=== PATIENT | male | born 1980 | race Two or more races ===

== ENCOUNTER 2020-01-15 17:36 | Outpatient (REF) | payer OTHER, SELFPAY | END 2020-01-15 17:37 | disposition home or self-care (01) | LOC: HO.LAB 17:36 | PROVIDERS: PCP Internal Medicine; Visit Provider Internal Medicine | DX: Z20.828 Contact with and (suspected) exposure to other viral communicable diseases (principal) | CPT/HCPCS: 36415; 87635 ==

== ENCOUNTER 2020-01-26 12:04 | Outpatient (REF) | payer OTHER, SELFPAY ==
--- NOTE | 2020-01-26 12:11 | XR_ITS ---
EXAMINATION: XR CHEST CLINICAL INFORMATION: Shortness of breath COMPARISON: None TECHNIQUE: 2 views of the chest were obtained. FINDINGS: No significant abnormality is noted involving the heart, lungs, mediastinum, bony thorax or soft tissues. IMPRESSION: No acute disease.
== END 2020-01-26 12:05 | disposition home or self-care (01) ==
LOC: HO.HMGCX 12:04
PROVIDERS: PCP Internal Medicine; Visit Provider Hospitalist
DX: R06.02 Shortness of breath (principal)
CPT/HCPCS: 71046

== ENCOUNTER 2020-02-02 17:03 | Outpatient (REF) | payer OTHER, SELFPAY | END 2020-02-02 17:04 | disposition home or self-care (01) | LOC: HO.LAB 17:03 | PROVIDERS: Visit Provider Nurse Practitioner Family | DX: Z20.828 Contact with and (suspected) exposure to other viral communicable diseases (principal) | CPT/HCPCS: 87635 ==

== ENCOUNTER 2021-04-22 15:14 | Outpatient (REF) | payer OTHER, SELFPAY ==
[2021-04-22 16:00] LABS: Binax Internal Control QC Valid; Binax Now Covid-19 Ag Negative (Negative)
== END 2021-04-22 15:15 | disposition home or self-care (01) ==
LOC: HO.LAB 15:14
PROVIDERS: Visit Provider Internal Medicine
DX: Z20.822 Contact with and (suspected) exposure to COVID-19 (principal)
CPT/HCPCS: C9803

== ENCOUNTER 2021-10-29 13:56 | Outpatient (REF) | payer OTHER, SELFPAY ==
[2021-10-29 14:51] LABS: Alanine Aminotransferase 24 U/L (0-40); Albumin Level 4.2 g/dL (3.5-5.0); Alkaline Phosphatase 92 U/L (39-117); Anion Gap 11 (12-20); Aspartate Amino Transferase 25 U/L (5-37); Bilirubin Total 0.5 mg/dL (0.0-1.0); Blood Urea Nitrogen 5 mg/dL (9-16); Calcium 9.3 mg/dL (8.4-10.2); Carbon Dioxide 27 mmol/L (22-29); Chloride 105 mmol/L (96-108); Estimated Glomerular Filt Rate > 60; Glucose Random 154 mg/dL (60-115); Potassium 4.3 mmol/L (3.3-5.1); Sodium 139 mmol/L (135-145); Total Protein 7.1 g/dL (6.5-8.0)
[2021-10-29 15:04] LABS: TSH reflex Free T4 1.52 uIU/mL (0.32-4.0)
== END 2021-10-29 13:57 | disposition home or self-care (01) ==
LOC: HO.LAB 13:56
PROVIDERS: PCP Internal Medicine; Visit Provider Nurse Practitioner
DX: R10.9 Unspecified abdominal pain (principal); K59.04 Chronic idiopathic constipation
CPT/HCPCS: 36415; 80053; 84443; 99202

== ENCOUNTER 2022-01-07 13:33 | Outpatient (REF) | payer OTHER, SELFPAY ==
--- NOTE | 2022-01-07 07:58 | PFT_ITS ---
FLOWS: FEV1 95% of predicted at 4.08 L. FVC 103% of predicted at 5.30 L. FEV1 to FVC ratio of 0.73. Positive bronchodilator response. LUNG VOLUMES: The patient was unable to perform lung volume maneuvers. Diffusion capacity is normal. IMPRESSION: No obstructive ventilatory defect. Positive bronchodilator response. The patient was unable to perform lung volume maneuvers. Akil Cat MD AP/MODL / [id number]
== END 2022-01-07 13:34 | disposition home or self-care (01) ==
LOC: HO.RESP 13:33
PROVIDERS: PCP Internal Medicine; Visit Provider Internal Medicine
DX: J42 Unspecified chronic bronchitis (principal)
CPT/HCPCS: 94060; 94729

== ENCOUNTER → 2022-06-02 14:06 | Outpatient (BNVA) | payer OTHER, SELFPAY | PROVIDERS: PCP Internal Medicine; Visit Provider Physician Assistant | DX: K20.0 Eosinophilic esophagitis (principal); F90.9 Attention-deficit hyperactivity disorder, unspecified type | CPT/HCPCS: 99212 ==

== ENCOUNTER 2022-06-04 10:48 | Outpatient (REF) | payer OTHER, SELFPAY ==
--- NOTE | ~2022-06-04 | US_ITS ---
EXAMINATION: US ABDOMEN COMPLETE CLINICAL INFORMATION: Epigastric pain. COMPARISON: CT of the abdomen and pelvis with contrast 01/26/2018. Ultrasound of the abdomen complete 12/02/2017 and 11/24/2013. TECHNIQUE: Real-time imaging of the abdominal viscera. FINDINGS: PANCREAS: The visualized portions of the pancreas are unremarkable but most of the gland is obscured by bowel gas. ABDOMINAL AORTA: The proximal, mid, and distal segments are normal in caliber. INFERIOR VENA CAVA: Visualized portions are normal. LIVER: The liver is enlarged and demonstrates increased echogenicity consistent with hepatic steatosis. The liver contour is normal. No focal hepatic lesion. There is no intrahepatic biliary duct dilatation seen. GALLBLADDER: Normal. The gallbladder is physiologically distended without evidence of stones, sludge, polyps, wall thickening or pericholecystic fluid. COMMON BILE DUCT: Normal in caliber measuring 0.4 cm in diameter. RIGHT KIDNEY: Normal. No hydronephrosis. No renal calculi or focal parenchymal lesions. The kidney measures 11.3 cm in maximum dimension. LEFT KIDNEY: Normal. No hydronephrosis. No renal calculi or focal parenchymal lesions. The kidney measures 11.4 cm in maximum dimension. SPLEEN: Normal. The spleen measures 10.6 cm in maximum dimension. FREE FLUID: None. US/US abdomen complete IMPRESSION: Enlarged fatty liver.
== END 2022-06-04 10:49 | disposition home or self-care (01) ==
LOC: HO.HMGCX 10:48
PROVIDERS: PCP Internal Medicine; Visit Provider Internal Medicine
DX: R10.13 Epigastric pain (principal); R14.0 Abdominal distension (gaseous)
CPT/HCPCS: 76700

== ENCOUNTER 2022-07-10 15:51 | Outpatient (REF) | payer OTHER, SELFPAY ==
[2022-07-10 17:00] LABS: MANUAL DIFF FLAG NO
[2022-07-10 17:17] LABS: Basophils Absolute Auto 0.1 X10*3/uL (0.0-0.2); Basophils Percent Auto 0.9 % (0-2); Eosinophils Absolute Auto 0.8 X10*3/uL (0.0-0.4); Eosinophils Percent Auto 9.9 % (0-4); Hematocrit 40.7 % (42.0-52.0); Hemoglobin 13.8 g/dl (14.0-18.0); Imm Gran Abs Auto 0.01 X10*3/uL (0.00-0.03); Imm Gran Pct Auto 0.1 % (0.0-0.4); Lymphocytes Absolute Auto 3.1 X10*3/uL (1.2-4.9); Mean Corpuscular HGB Conc 33.9 g/dl (31.0-36.0); Mean Corpuscular Hemoglobin 28.8 pg (27.0-33.0); Mean Platelet Volume 9.7 fL (9.4-12.4); Monocytes Absolute Auto 0.9 X10*3/uL (0.1-1.2); Monocytes Percent Auto 11.2 % (2-11); Neutrophils Percent Auto 37.9 % (45-73); Platelet Count 240 X10*3/uL (160-400); Red Blood Count 4.79 X10*6/uL (4.60-5.80); Red Cell Distribution Width 12.8 % (11.0-16.0); White Blood Count 7.9 X10*3/uL (4.8-10.8)
[2022-07-10 17:24] LABS: Estimated Average Glucose 128 mg/dL; Hemoglobin A1c % 6.1 %
[2022-07-10 17:39] LABS: Alanine Aminotransferase 22 U/L (0-40); Anion Gap 12 (12-20); Aspartate Amino Transferase 20 U/L (5-37); Blood Urea Nitrogen 9 mg/dL (9-16); Calcium 8.7 mg/dL (8.4-10.2); Carbon Dioxide 25 mmol/L (22-29); Chloride 106 mmol/L (96-108); Cholesterol 248 mg/dL; Estimated Glomerular Filt Rate > 60; Glucose Fasting 156 mg/dL (60-99); HDL Cholesterol 44 mg/dL; LDL Cholesterol Calculated 162 mg/dl; Potassium 3.7 mmol/L (3.3-5.1); Sodium 139 mmol/L (135-145); Triglycerides 213 mg/dL
[2022-07-10 18:00] LABS: Prostate Specific Antigen 0.96 ng/mL (<0.05-4.0)
== END 2022-07-10 15:52 | disposition home or self-care (01) ==
LOC: HO.LAB 15:51
PROVIDERS: PCP Internal Medicine; Visit Provider Nurse Practitioner Family
DX: Z01.818 Encounter for other preprocedural examination (principal); Z12.5 Encounter for screening for malignant neoplasm of prostate; F90.9 Attention-deficit hyperactivity disorder, unspecified type; R73.01 Impaired fasting glucose; Z21 Asymptomatic human immunodeficiency virus [HIV] infection status; E78.5 Hyperlipidemia, unspecified; N40.0 Benign prostatic hyperplasia without lower urinary tract symptoms; R39.89 Other symptoms and signs involving the genitourinary system; R39.11 Hesitancy of micturition
CPT/HCPCS: 36415; 51798; 80048; 80061; 83036; 84153; 84450; 84460; 85025; 99202

== ENCOUNTER 2022-07-20 11:19 | Outpatient (REF) | payer OTHER, SELFPAY ==
--- NOTE | ~2022-07-20 | US_ITS ---
EXAMINATION: US PELVIS LIMITED (BLADDER) CLINICAL INFORMATION: Benign prostatic hyperplasia without lower urinary tract symptoms. COMPARISON: Ultrasound abdomen complete 06/04/2022. CT abdomen and pelvis with contrast 01/26/2018. Ultrasound abdomen complete 12/02/2017. TECHNIQUE: Real-time imaging of the bladder. FINDINGS: BLADDER: Partially distended. Right ureteral jet is demonstrated; left is not. Prevoid bladder volume is 100 mL. Postvoid bladder volume is 1.7 mL. The prostate volume is 39 mL. US/US bladder IMPRESSION: The left ureteral jet was not identified of doubtful clinical significance. Otherwise unremarkable sonographic appearance of the bladder. Prostate is enlarged with a volume of 39 mL..
== END 2022-07-20 11:20 | disposition home or self-care (01) ==
LOC: HO.HMGCX 11:19
PROVIDERS: PCP Internal Medicine; Visit Provider Nurse Practitioner Family
DX: N40.0 Benign prostatic hyperplasia without lower urinary tract symptoms (principal); R39.89 Other symptoms and signs involving the genitourinary system; R39.11 Hesitancy of micturition; R30.0 Dysuria
CPT/HCPCS: 76857

== ENCOUNTER 2023-02-18 14:56 | Outpatient (AMB) | payer OTHER, SELFPAY ==
--- NOTE | 2023-02-18 14:59 | MHC.OFFVIS ---
Intake Intake Visit Reasons: follow up(set) Intake Note: Patient is present for follow up visit dysuria/incomplete bladder emptying/ultrasound/labs (imaging 07/20/22) (psa 0.96) Urology Medications: tamsulosin Blood Thinner: none PVR: 74ml's Licensing And Registration Director Required: No Accompanied by: Unknown Allergies bee pollen [BEE STINGS] Allergy (Severe, Verified 02/18/23 18:46) ANAPHYLAXIS fentanyl Allergy (Mild, Verified 02/18/23 18:46) Agitated bee stings/yellow jackets Allergy (Unknown, Uncoded 02/18/23 18:46) anaphylaxis Medication List - Last Reconciled 02/18/23 by LATASHA Jeffers atorvastatin 40 mg PO BEDTIME hfnailegy-ellrspjx-wsuyaae ala 30-120-15 mg (Biktarvy) tabs PO clindamycin HCl 300 mg PO TID Combivent Respimat 20-100 mcg/actuation (ipratropium-albuterol) 2 puffs PO Q6H PRN NS dextroamphetamine-amphetamine 50 mg ER 1 cap PO QAM epinephrine 0.3 mg (0.3 mL) IM DIRECTED PRN fluticasone propionate 220 mcg/actuation 0 mcg inhalation fluticasone propionate 110 mcg/actuation (Flovent HFA) 1 puff inhalation BID gabapentin 300 mg PO TID lidocaine 5% 1 appl topical BID PRN omeprazole 40 mg PO BID sucralfate 10 mL PO BID tadalafil (Cialis) 5 mg PO DAILY 90 days tadalafil (Cialis) 20 mg PO DAILY 90 days HPI HPI Comments History of Present Illness Details Lance is a pleasant 43-year-old male patient of Dr. Inman who was accompanied by his significant other at today's office visit. He has a past medical history of HIV with undetectable viral load, history of substance abuse, no longer using except for occasional marijuana, has asthma, hyperlipidemia, impaired fasting glucose, ADHD, and history of eosinophilic esophagitis. He presents to the office today for follow-up. Of note, patient was seen approximately 6 months ago for lower urinary tract symptoms, urinary issues, and erectile dysfunction at which time a bladder ultrasound and PSA were ordered for further assessment evaluation. The patient was also started on Flomax 0.4 mg daily. Recommendations were made for 6 week follow-up however patient discusses being unable to make it to follow-up appointments due to his schedule. Discussed at length importance of following up as recommended. He reports noting somewhat improvement in lower urinary tract symptoms of urinary frequency and bladder pressure while taking tamsulosin 0.4 mg daily. He reports feeling improvement in initiating urination while on Flomax. Bladder ultrasound results reviewed with the patient today. Partially distended bladder. Pre void bladder volume is approximately 100 mL. Postvoid bladder volume is approximately 2 mL. The prostate volume is approximately 40 mL. PSA 07/02--1.0. During last office visit recommendations were made for penile ultrasound for further assessment and evaluation however in discussion with the patient today he continues to want to think about this. 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 He reports attempting to limit monster drinks since his last office visit here. Educated, discussed, and stressed the importance of limiting energy drinks for improvement in urinary symptoms and overall health and well-being. When asked he denies incontinence, nocturia, hematuria, dysuria, and or foul smelling urine. In office urinalysis results reviewed with the patient today. PVR 74 mL. [facility] Medical History Post herpetic neuralgia Difficult or painful urination Urinary hesitancy Abdominal bloating Epigastric pain Dyslipidemia Thoracic ascending aortic aneurysm Preoperative examination Chronic idiopathic constipation Chronic bronchitis Impaired fasting glucose Asymptomatic HIV infection PTSD (post-traumatic stress disorder) ADHD (attention deficit hyperactivity disorder) Eosinophilic esophagitis Surgical History Hx of appendectomy Hx of knee surgery History of esophagogastroduodenoscopy (EGD) Family History Father No problems noted. Mother CAD (coronary artery disease) Mental health disorder Brother No problems noted. Sister No problems noted. Sister No problems noted. Son No problems noted. Daughter No problems noted. Paternal Grandfather Substance use disorder Paternal Uncle Substance use disorder Paternal Uncle Substance use disorder Social History Housing: Condominium Patient Tobacco Use Status: Former Tobacco user e-Cigarette/Vaping Use: Currently Using service: No Current occupational status: employed Cognitive needs: No Hearing needs: No Vision needs: Yes Office Procedures Post Void Residual Post Residual Void Post Void Residual (PVR): 74 [id number]-Ysva Void Residual by ultrasound Results AMB Urinalysis, Automated UA Leukoctes 70 Tawanna/uL Last Edit by Yudith Cornejo on 02/18/23 15:22 UA Nitrite Negative Last Edit by Yudith Cornejo on 02/18/23 15:22 UA Urobilinogen 0.2 mg/dL Last Edit by Yudith Cornejo on 02/18/23 15:22 UA Protein 15 mg/dL Last Edit by Bullet [employer]pamela Placesterteresa on 02/18/23 15:22 UA pH 6.0 Last Edit by CRVteresa on 02/18/23 15:22 UA Blood 0 Andry/uL Last Edit by RoyaltySharemaría Placester on 02/18/23 15:22 UA Specific [place] 1.030 Last Edit by RoyaltySharemaría Cornejo on 02/18/23 15:22 UA Ketone Negative Last Edit by Bullet [employer]pamela Cornejo on 02/18/23 15:22 UA Bilirubin 0 mg/dL Last Edit by [employer]ela Cornejo on 02/18/23 15:22 UA Glucose 0 mg/dL Last Edit by CRVteresa on 02/18/23 15:22 Results Reviewed Results Reviewed: Laboratory Last Values Urine pH (Auto) 6.0 02/18/23 15:05 Specific [place] (Auto) 1.030 02/18/23 15:05 Urine Protein (Auto) 15 mg/dL 02/18/23 15:05 Glucose (UA)(Auto) 0 mg/dL 02/18/23 15:05 Urine Ketones (Auto) Negative 02/18/23 15:05 Urine Blood (Auto) 0 Andry/uL 02/18/23 15:05 Urine Nitrite (Auto) Negative 02/18/23 15:05 Urine Bilirubin (Auto) 0 mg/dL 02/18/23 15:05 Urine Urobilinogen (Auto) 0.2 mg/dL 02/18/23 15:05 Leukocyte Esterase (Auto) 70 Tawanna/uL 02/18/23 15:05 Date of Service: 07/20/22 EXAMINATION: US PELVIS LIMITED (BLADDER) FINDINGS: BLADDER: Partially distended. Right ureteral jet is demonstrated; left is not. Prevoid bladder volume is 100 mL. Postvoid bladder volume is 1.7 mL. The prostate volume is 39 mL. IMPRESSION: The left ureteral jet was not identified of doubtful clinical significance. Otherwise unremarkable sonographic appearance of the bladder. Prostate is enlarged with a volume of 39 mL. Assessment & Plan Assessment & Plan (1) Lower urinary tract symptoms: Code(s): R39.9 - Unspecified symptoms and signs involving the genitourinary system (2) Erectile dysfunction: Code(s): N52.9 - Male erectile dysfunction, unspecified (3) Enlarged prostate: Code(s): N40.0 - Benign prostatic hyperplasia without lower urinary tract symptoms Plan In office urinalysis results reviewed with the patient today; as noted above. Discussed, educated, and stressed the importance of limiting energy drinks for improvement in urinary symptoms and overall health and well-being. Recent bladder ultrasound results reviewed with the patient today. Discussed, educated, instructed on the importance of drinking adequate amount of water daily. Discussed possible near future in office cystoscopy if symptoms persist and/or worsen for further assessment evaluation PVR 74 mL. Stop Flomax. Start Cialis 5 mg daily as discussed and prescribed. Prescription provided for p.r.n. Cialis as needed 1 hour prior to sexual activity. Discussed obtaining penile Doppler ultrasound for further assessment evaluation; patient will think about this Discussed lifestyle modifications to assist with symptoms of erectile dysfunction as well as overall health and well-being. Follow-up in 3 months with PVR; or sooner with any issues, concerns, or questions. Orders: Orders AMB Post Void Residual by ultrasound Today N40.0 - Benign prostatic hyperplasia without lower urinary tract symptoms AMB Urinalysis Automated Today Z13.9 - Encounter for screening, unspecified Medications: New tadalafil (Cialis) [id number] [facility] [id number] Member [id number] 5 mg PO DAILY 90 days 90 tabs 0RF tadalafil (Cialis) [id number] [facility] [id number] Member [id number] 20 mg PO DAILY 90 days 45 tabs 0RF Discontinued tamsulosin Discontinued Reason: Doctor's Order 0.4 mg PO BEDTIME 30 days 30 caps 1RF N40.1 - Benign prostatic hyperplasia with lower urinary tract symptoms, R35.1 - Nocturia Patient Instructions: The patient had an opportunity to ask questions regarding the treatment plan. All questions were answered. Physical exam, labs, and imaging were discussed and reviewed in detail. As well as risks, benefits, and discussion of treatment choices. No major barriers to understanding were identified. The patient expressed understanding and agreement with the above treatment plan. The patient was made aware they should contact our office by phone for worsening of their current condition, the appearance of new symptoms, or with any questions or concerns. Compliance is encouraged with any medications and follow up testing that is ordered. It is a privilege to be allowed the opportunity to participate in? your urological care.? Again, if you have any questions or concerns If you have any questions or concerns please do not hesitate to contact me. The office is [phone]. This note is constructed using voice recognition software. While every effort has been made to ensure accuracy psych rn errors may have been included. Yours sincerely, LATASHA Jeffers Coding Level of Care Code Est Pt Level 4 (67653) Diagnoses Lower urinary tract symptoms R39.9 Erectile dysfunction N52.9 Enlarged prostate N40.0 CPT Codes Post Residual Void - PVR CPT Code: 60068-Ckju Void Residual by ultrasound ([id number])
== END 2023-02-18 15:35 | disposition home or self-care (01) ==
PROVIDERS: PCP Internal Medicine; Visit Provider Nurse Practitioner Family
DX: R39.9 Unspecified symptoms and signs involving the genitourinary system (principal); N52.9 Male erectile dysfunction, unspecified; N40.0 Benign prostatic hyperplasia without lower urinary tract symptoms; Z13.9 Encounter for screening, unspecified
CPT/HCPCS: 99214

== ENCOUNTER → 2023-02-18 14:56 | Outpatient (BNVA) | payer OTHER, SELFPAY | PROVIDERS: PCP Internal Medicine; Visit Provider Nurse Practitioner Family | DX: R39.9 Unspecified symptoms and signs involving the genitourinary system (principal); N52.9 Male erectile dysfunction, unspecified; N40.0 Benign prostatic hyperplasia without lower urinary tract symptoms | CPT/HCPCS: 51798; 81003; 99212 ==

== ENCOUNTER 2023-08-27 14:44 | Outpatient (AMB) | payer OTHER, SELFPAY ==
--- NOTE | 2023-08-27 15:03 | MHC.OFFVIS ---
Intake Visit Reasons: follow up/PVR Intake Note: Patient is present for follow up visit dysuria/incomplete bladder emptying Urology Medications: tadalafil (pt needs refills) Blood Thinner: none PVR: 27ml's [employer] Open[employer]soles Required: No Accompanied by: Unknown Allergies bee pollen [BEE STINGS] Allergy (Severe, Verified 08/27/23 22:20) ANAPHYLAXIS fentanyl Allergy (Mild, Verified 08/27/23 22:20) Agitated bee stings/yellow jackets Allergy (Unknown, Uncoded 08/27/23 22:20) anaphylaxis Medication List - Last Reconciled 08/27/23 by LATASHA Jeffers atorvastatin 40 mg PO BEDTIME qyoizdfoe-ixumjybn-gifofgz ala 30-120-15 mg (Biktarvy) tabs PO clindamycin HCl 300 mg PO TID Combivent Respimat 20-100 mcg/actuation (ipratropium-albuterol) 2 puffs PO Q6H PRN NS dextroamphetamine-amphetamine 50 mg ER 1 cap PO QAM epinephrine 0.3 mg (0.3 mL) IM DIRECTED PRN fluticasone propionate 220 mcg/actuation 0 mcg inhalation fluticasone propionate 110 mcg/actuation (Flovent HFA) 1 puff inhalation BID gabapentin 300 mg PO TID lidocaine 5% 1 appl topical BID PRN omeprazole 40 mg PO BID sucralfate 10 mL PO BID tadalafil (Cialis) 20 mg PO DAILY 90 days HPI Comments Details: Lance is a pleasant 43-year-old male patient of Dr. Inman who was accompanied by his significant other at today's office visit. He has a past medical history of HIV with undetectable viral load, history of substance abuse, no longer using except for occasional marijuana, has asthma, hyperlipidemia, impaired fasting glucose, ADHD, and history of eosinophilic esophagitis. He presents to the office today for follow-up of his lower urinary tract symptoms and erectile dysfunction. In discussion with the patient today reports to be doing and feeling well. He reports feeling 20 mg as needed Cialis has been helpful in obtaining and maintaining his erections. He is requesting a refill. He currently denies any bothersome urinary issues or concerns. He denies urinary urgency, urinary frequency, incontinence, nocturia, hematuria, dysuria, foul smelling urine, changes to urinary stream, flank pain, fever, and or chills. He is happy with his current voiding parameters. Patient with a history of lower urinary tract symptoms with a previous workup of a bladder ultrasound that noted partially distended bladder. Pre void bladder volume is approximately 100 mL. Postvoid bladder volume is approximately 2 mL. The prostate volume is approximately 40 mL. PSA 07/02--1.0. 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 He reports attempting to limit monster drinks since his last office visit here and feels this has significantly improved his lower urinary tract symptoms he had been experiencing. In office urinalysis results reviewed with the patient today. PVR 27mL. [facility] Medical History Post herpetic neuralgia Difficult or painful urination Urinary hesitancy Abdominal bloating Epigastric pain Dyslipidemia Thoracic ascending aortic aneurysm Preoperative examination Chronic idiopathic constipation Chronic bronchitis Impaired fasting glucose Asymptomatic HIV infection PTSD (post-traumatic stress disorder) ADHD (attention deficit hyperactivity disorder) Eosinophilic esophagitis Surgical History Hx of appendectomy Hx of knee surgery History of esophagogastroduodenoscopy (EGD) Family History Father No problems noted. Mother CAD (coronary artery disease) Mental health disorder Brother No problems noted. Sister No problems noted. Sister No problems noted. Son No problems noted. Daughter No problems noted. Paternal Grandfather Substance use disorder Paternal Uncle Substance use disorder Paternal Uncle Substance use disorder Social History Housing: Condominium Patient Tobacco Use Status: Former Tobacco user e-Cigarette/Vaping Use: Currently Using service: No Current occupational status: employed Cognitive needs: No Hearing needs: No Vision needs: Yes Review of Systems Const Reports as per HPI Eyes Reports no additional complaints ENT Reports no additional complaints Card Details: Patient reports following up with cardiology for aortic aneurysm Resp Reports no additional complaints GI Details: Patient reports issues with constipation Reports as per HPI Musc Reports no additional complaints Neuro Reports as per HPI Psych Reports as per HPI Endo Reports as per HPI Willem/Lymph Reports as per HPI Aller/Immun Reports as per HPI Physical Exam Const General: cooperative, healthy appearing, comfortable, no acute distress, well developed, alert and awake Orientation/consciousness: patient oriented x3 Limitations: no limitations HEENT Head: Yes normal to inspection, Yes normocephalic and Yes atraumatic Ears: hearing grossly normal bilaterally Eyes General: appearance normal, both eyes and all related structures Neck Neck: Yes normal visual inspection and Yes trachea midline Chest Chest palpation & inspection: normal inspection of the chest Resp Effort & Inspection: normal respiratory effort and able to speak in complete sentences Cardio Rate: regular rate GI Inspection: Yes normal to inspection General: Yes no CVA tenderness Back/Spine/Pelvis Back: no CVA tenderness Skin General skin exam: no rashes or lesions noted Neuro General: patient oriented x3 Extrem General: Yes normal to inspection Psych Appearance: grossly normal and well kempt Mental Status: mental status grossly normal Speech and movement: Normal speech and movement present (fast speech ) and Clear speech present Affect: normal affect Attitude: cooperative Thought process: Racing thoughts present Thought content: Normal thought content present Insight: Fair insight present (Psych) Judgement: Fair judgement present (Psych) Results AMB Urinalysis, Automated UA Leukoctes 0 Tawanna/uL Last Edit by Inktd on 08/27/23 15:17 UA Nitrite Negative Last Edit by Inktd on 08/27/23 15:17 UA Urobilinogen 0.2 mg/dL Last Edit by Inktd on 08/27/23 15:17 UA Protein 0 mg/dL Last Edit by Inktd on 08/27/23 15:17 UA pH 7.0 Last Edit by Inktd on 08/27/23 15:17 UA Blood 0 Andry/uL Last Edit by Inktd on 08/27/23 15:17 UA Specific [place] 1.005 Last Edit by Inktd on 08/27/23 15:17 UA Ketone Negative Last Edit by Inktd on 08/27/23 15:17 UA Bilirubin 0 mg/dL Last Edit by Inktd on 08/27/23 15:17 UA Glucose 0 mg/dL Last Edit by Inktd on 08/27/23 15:17 Results Reviewed Results Reviewed: Laboratory Last Values Urine pH (Auto) 7.0 08/27/23 15:12 Specific [place] (Auto) 1.005 08/27/23 15:12 Urine Protein (Auto) 0 mg/dL 08/27/23 15:12 Glucose (UA)(Auto) 0 mg/dL 08/27/23 15:12 Urine Ketones (Auto) Negative 08/27/23 15:12 Urine Blood (Auto) 0 Andry/uL 08/27/23 15:12 Urine Nitrite (Auto) Negative 08/27/23 15:12 Urine Bilirubin (Auto) 0 mg/dL 08/27/23 15:12 Urine Urobilinogen (Auto) 0.2 mg/dL 08/27/23 15:12 Leukocyte Esterase (Auto) 0 Tawanna/uL 08/27/23 15:12 Assessment & Plan Assessment & Plan (1) Erectile dysfunction: Code(s): N52.9 - Male erectile dysfunction, unspecified Category: Medical (2) Lower urinary tract symptoms: Code(s): R39.9 - Unspecified symptoms and signs involving the genitourinary system Category: Medical (3) Enlarged prostate: Code(s): N40.0 - Benign prostatic hyperplasia without lower urinary tract symptoms Category: Medical Plan In office urinalysis results reviewed with the patient today; as noted above. PVR 27 mLs Continue as needed Cialis as discussed and prescribed; refill provided. Patient currently denies any bothersome urinary issues or concerns. He reports be happy with current voiding parameters. Discussed further workup of ED to include penile Doppler however patient reports be happy with p.r.n./on demand Cialis and feels this has been adequate with obtaining and maintaining his erections. Discussed lifestyle modifications to assist with symptoms of erectile dysfunction as well as overall health and well-being. Follow-up in 6 months with PVR; or sooner with any issues, concerns, or questions. Orders: Orders AMB Urinalysis Automated Today Z13.9 - Encounter for screening, unspecified Medications: Refilled tadalafil (Cialis) [id number] [facility] [id number] Member [id number] 20 mg PO DAILY 45 tabs 3RF 90 days Discontinued [facility]adalafil (Cialis) [id number] [facility] [id number] Discontinued Reason: Doctor's Order 5 mg PO DAILY 90 tabs 0RF 90 days Patient Instructions: The patient had an opportunity to ask questions regarding the treatment plan. All questions were answered. Physical exam, labs, and imaging were discussed and reviewed in detail. As well as risks, benefits, and discussion of treatment choices. No major barriers to understanding were identified. The patient expressed understanding and agreement with the above treatment plan. The patient was made aware they should contact our office by phone for worsening of their current condition, the appearance of new symptoms, or with any questions or concerns. Compliance is encouraged with any medications and follow up testing that is ordered. It is a privilege to be allowed the opportunity to participate in? your urological care.? Again, if you have any questions or concerns If you have any questions or concerns please do not hesitate to contact me. The office is [phone]. This note is constructed using voice recognition software. While every effort has been made to ensure accuracy section hand helper errors may have been included. Yours sincerely, LATASHA Jeffers Coding Level of Care Code Est Pt Level 3 (24213) Diagnoses Erectile dysfunction N52.9 Lower urinary tract symptoms R39.9 Enlarged prostate N40.0
== END 2023-08-27 16:08 | disposition home or self-care (01) ==
LOC: HO.HUSH 14:44
PROVIDERS: PCP Internal Medicine; Visit Provider Nurse Practitioner Family
DX: N52.9 Male erectile dysfunction, unspecified (principal); R39.9 Unspecified symptoms and signs involving the genitourinary system; N40.0 Benign prostatic hyperplasia without lower urinary tract symptoms; Z13.9 Encounter for screening, unspecified
CPT/HCPCS: 99213

== ENCOUNTER → 2023-08-27 14:44 | Outpatient (BNVA) | payer OTHER, SELFPAY | PROVIDERS: PCP Internal Medicine; Visit Provider Nurse Practitioner Family | DX: N52.9 Male erectile dysfunction, unspecified (principal); N40.0 Benign prostatic hyperplasia without lower urinary tract symptoms; R39.9 Unspecified symptoms and signs involving the genitourinary system | CPT/HCPCS: 81003; 99212 ==

== ENCOUNTER 2024-01-10 09:04 | Outpatient (AMB) | payer OTHER, SELFPAY ==
--- NOTE | 2024-01-10 09:45 | MHC.PC.OV ---
Vital Signs 01/10/24 09:46 Height 5 ft 11.5 in Weight 237 lb BMI 32.6 BP 140/82 H Blood Pressure Location Lt brachial Position Sitting Pulse 84 Pulse Source Pulse Oximeter Pulse Oximetry (%) 99 Oxygen Delivery Method Room Air Intake Visit Reasons: Possible Melanoma Intake Note: Pt is here today to discuss a growth on his penil and its a brownish color Allergies bee pollen [BEE STINGS] Allergy (Severe, Verified 01/11/24 23:20) ANAPHYLAXIS fentanyl Allergy (Mild, Verified 01/11/24 23:20) Agitated bee stings/yellow jackets Allergy (Unknown, Uncoded 01/11/24 23:20) anaphylaxis Medication List - Last Reconciled 01/11/24 by Tina Inman MD atorvastatin 40 mg PO BEDTIME wyphuhfhh-uxqqnpfu-nugxcgr ala 30-120-15 mg (Biktarvy) tabs PO clindamycin HCl 300 mg PO TID Combivent Respimat 20-100 mcg/actuation (ipratropium-albuterol) 2 puffs PO Q6H PRN NS dextroamphetamine-amphetamine 50 mg ER 1 cap PO QAM epinephrine 0.3 mg (0.3 mL) IM DIRECTED PRN fluticasone propionate 220 mcg/actuation 0 mcg inhalation fluticasone propionate 110 mcg/actuation (Flovent HFA) 1 puff inhalation BID gabapentin 300 mg PO TID lidocaine 5% 1 appl topical BID PRN omeprazole 40 mg PO BID sucralfate 10 mL PO BID tadalafil (Cialis) 20 mg PO DAILY 90 days Tobacco use date assessed: 01/10/24 Dental Screening Dental Screen Date: 01/10/24 Did you have a dental visit in the last 12 months?: Yes Did you have a dental problem in the last 6 months where you did not have access to dental care?: Yes Was dental information given to patient?: Patient has dentist HPI Possible Melanoma HPI Details 44-year-old lady here today wanting to have a lesion on his suprapubic area checked. Patient states that he has had a small lesion there for several years now but it has started increasing in size and changing color. Patient is known to frequent tanning salons [facility] Medical History Post herpetic neuralgia Difficult or painful urination Urinary hesitancy Abdominal bloating Epigastric pain Dyslipidemia Thoracic ascending aortic aneurysm Preoperative examination Chronic idiopathic constipation Chronic bronchitis Impaired fasting glucose Asymptomatic HIV infection PTSD (post-traumatic stress disorder) ADHD (attention deficit hyperactivity disorder) Eosinophilic esophagitis Surgical History Hx of appendectomy Hx of knee surgery History of esophagogastroduodenoscopy (EGD) Family History Father No problems noted. Mother CAD (coronary artery disease) Mental health disorder Brother No problems noted. Sister No problems noted. Sister No problems noted. Son No problems noted. Daughter No problems noted. Paternal Grandfather Substance use disorder Paternal Uncle Substance use disorder Paternal Uncle Substance use disorder Social History Housing: Condominium Patient Tobacco Use Status: Former Tobacco user e-Cigarette/Vaping Use: Currently Using service: No Current occupational status: employed Cognitive needs: No Hearing needs: No Vision needs: Yes Questionnaire PHQ-9 Over the last 2 weeks, how often have you been bothered by any of the following problems? 1. Little interest or pleasure in doing things: not at all 2. Feeling down, depressed, or hopeless: not at all 3. Trouble falling or staying asleep, or sleeping too much: more than half the days 4. Feeling tired or having little energy: several days 5. Poor appetite or overeating: several days 6. Feeling bad about yourself - or that you are a failure or have let yourself or your family down: not at all 7. Trouble concentrating on things, such as reading the newspaper or watching television: not at all 8. Moving or speaking so slowly that other people could have noticed. Or the opposite - being so fidgety or restless that you have been moving around a lot more than usual: not at all 9. Thoughts that you would be better off or of hurting yourself in some way: not at all Total score: 4 Depression Screening Interpretation: Negative Depression Screening Done: Yes 58614 - PHQ-9 Billing: Yes Source: Developed by Drs. Tanvir Madera, Lisa Cherry, Jerome Wagoner and colleagues, with an educational rey from [employer]. Thrive Questionnaire Date Thrive assessed: 01/10/24 I am a: Patient What is your living situation today?: I have a steady place to live Within the past 12 months, did the food you bought not last and you didn't have the money to get more?: Often true Within the past 12 months, did you worry whether your food would run out before you got money to buy more?: Never true Do you have trouble paying for medicines?: No Do you have trouble getting transportation to medical appointments?: No Do you have trouble paying your heating and electricity bill?: No Do you have trouble taking care of your child, family member or friend?: No Do you have trouble with day-to-day activities such as bathing, preparing meals, shopping, managing finances, etc.?: No Are you interested in more education?: No Please select the resources that you would like help with: None Currently or been in a relationship where the following occur: I choose not to answer THRIVE Score: 1 AUDIT C Alcohol Use Questionnaire (AUDIT-C) 1. How often do you have a drink containing alcohol?: Never Total Score: 0 SHIRLENE-7 AMB Questionnaire SHIRLENE-7 Date SHIRLENE - 7 assessed: 01/10/24 Feeling nervous, anxious, or on edge: 0 = Not at all Not being able to stop or control worryin = Not at all Worrying too much about different things: 0 = Not at all Trouble relaxin = Not at all Being so restless that it is hard to sit still: 0 = Not at all Becoming easily annoyed or irritable: 0 = Not at all Feeling afraid as if something awful might happen: 0 = Not at all Total SHIRLENE-7 score (0-4 normal; 5-9 mild; 10-14 moderate; 15-21 severe): 0 Source: Developed by Drs. Tanvir Madera, Lisa Cherry, Jerome Wagoner and colleagues, with an educational rey from [employer]. Review of Systems Const All systems reviewed & are unremarkable except as noted in HPI and below Physical exam (Primary Care) Vital Signs: Last Vital Signs Pulse 84 01/10/24 09:46 BP 140/82 H 01/10/24 09:46 Pulse Ox 99 01/10/24 09:46 Oxygen Delivery Method Room Air 01/10/24 09:46 BMI result Body Mass Index 32.6 Tobacco/Smoking Status: Tobacco use Status Tobacco use date assessed 01/10/24 01/10/24 09:51 Patient Tobacco Use Status Former Tobacco user 01/10/24 09:51 e-Cigarette/Vaping Use Currently Using 01/10/24 09:51 PHQ-9: PHQ-9 Score PHQ-9: Total score 6 01/10/24 10:14 Depression Screening Interpretation: Negative Thrive Assessment: Date of Thrive Assessment Date Thrive assessed 01/10/24 01/10/24 09:51 Currently or been in a relationship where the following occur: I choose not to answer Const Other: Alert oriented x3, no acute distress noted ambulatory normal gait Orientation/consciousness: patient oriented x3 Neck Neck: Yes full ROM, Yes no lymphadenopathy and Yes supple Resp Auscultation: clear to auscultation bilaterally Cardio Other: S1-S2 PRESENT REGULAR RATE AND RHYTHM Skin Other: Circular hyperpigmented macular lesion on mons pubis with irregular margin , nontender to palpation, normal surrounding skin noted Neuro General: patient oriented x3, gait normal, tone normal, Normal light touch and pain sensation, no focal motor deficits and CN's II-XI intact bilaterally Extrem General: Yes full ROM, Yes no joint enlargement, Yes no clubbing, cyanosis or edema and Yes normal gait Coding Level of Care Code Est Pt Level 3 (16234) Diagnoses Change in pigmented skin lesion L81.9
[2024-01-10 09:46] VITALS: BP 140/82; PULSE 84; O2SAT 99; BMI 32.6
== END 2024-01-10 11:05 | disposition home or self-care (01) ==
PROVIDERS: PCP Internal Medicine; Visit Provider Internal Medicine
DX: L81.9 Disorder of pigmentation, unspecified (principal)

== ENCOUNTER → 2024-01-10 09:04 | Outpatient (BNVA) | payer OTHER, SELFPAY | PROVIDERS: PCP Internal Medicine; Visit Provider Internal Medicine | DX: L81.9 Disorder of pigmentation, unspecified (principal) | CPT/HCPCS: 96127; 99212 ==

== ENCOUNTER 2024-03-27 10:21 | Outpatient (AMB) | payer OTHER, SELFPAY ==
--- OUTSIDE RECORDS SUMMARY | 2024-03-27 10:22 | XMS_ITS ---
Author Name [facility] Organization Unknown History of Medication Use Medication Directions Dispensed Refills Start Date End Date Stat No known medications No known medications 2023 active Problems Problem Status Onset Date Problem Type Date of Resoluti on Source Chemical exposure active EncounterDiagnosisAct [facility]
--- NOTE | 2024-03-27 11:08 | A.OFFPC_ITS ---
Vital Signs 03/27/24 11:09 Height 5 ft 11.5 in Weight 250 lb BMI 34.4 BP 140/80 H Blood Pressure Location Rt brachial Position Sitting Pulse 83 Pulse Source Pulse Oximeter Pulse Oximetry (%) 98 Oxygen Delivery Method Room Air Intake Visit Reasons: PE/OVERDUE Intake Note: Pt is here today for his PE: Last colonoscopy 07/2023 [place] Allergies bee pollen [BEE STINGS] Allergy (Severe, Verified 03/27/24 11:28) ANAPHYLAXIS fentanyl Allergy (Mild, Verified 03/27/24 11:28) Agitated bee stings/yellow jackets Allergy (Unknown, Uncoded 03/27/24 11:28) anaphylaxis Medication List - Last Reconciled 03/27/24 by Tina Inman MD [id number]-[id number]-[id number] ala 30-120-15 mg (Biktarvy) tabs PO Combivent Respimat 20-100 mcg/actuation (ipratropium-albuterol) 2 puffs PO Q6H PRN NS dextroamphetamine-amphetamine 50 mg ER 1 cap PO QAM epinephrine 0.3 mg (0.3 mL) IM DIRECTED PRN fluticasone propionate 110 mcg/actuation 1 puff inhalation BID omeprazole 40 mg PO BID tadalafil (Cialis) 20 mg PO DAILY 90 days Tobacco use date assessed: 03/27/24 Dental Screening Dental Screen Date: 03/27/24 Did you have a dental visit in the last 12 months?: Yes Did you have a dental problem in the last 6 months where you did not have access to dental care?: No Was dental information given to patient?: Patient has dentist HPI PE/OVERDUE HPI Details 44 year-old male with history of HIV wit h undetectable viral load, history of substance abuse, no longer using except for occasional marijuana, has asthma, hyperlipidemia, impaired fasting glucose, ADHD, history of eosinophilic esophagitis, here today for his physical exam.. He is currently followed by HIV specialist Dr. Veliz at [facility], and sees therapist Jessica Grady and Precious García, psychiatric nurse practitioner for treatment of his ADHD currently stable controlled on dextroamphetamine-amphetamine. He takes omeprazole for treatment of eosinophilic esophagitis, followed at [facility]. Has mild intermittent asthma currently only using Combivent Respimat and fluticasone propionate Takes Cialis 20 mg daily for erectile dysfunction, seen by [facility]rology [facility] Medical History (Updated 03/27/24 @ 11:53 by Tina Inman MD) Numbness and tingling Post herpetic neuralgia Difficult or painful urination Urinary hesitancy Abdominal bloating Epigastric pain Dyslipidemia Thoracic ascending aortic aneurysm Preoperative examination Chronic idiopathic constipation Chronic bronchitis Impaired fasting glucose Asymptomatic HIV infection PTSD (post-traumatic stress disorder) ADHD (attention deficit hyperactivity disorder) Eosinophilic esophagitis Surgical History Hx of appendectomy Hx of knee surgery History of esophagogastroduodenoscopy (EGD) Family History Father No problems noted. Mother CAD (coronary artery disease) Mental health disorder Brother No problems noted. Sister No problems noted. Sister No problems noted. Son No problems noted. Daughter No problems noted. Paternal Grandfather Substance use disorder Paternal Uncle Substance use disorder Paternal Uncle Substance use disorder Social History Housing: Condominium Patient Tobacco Use Status: Former Tobacco user e-Cigarette/Vaping Use: Currently Using service: No Current occupational status: employed Cognitive needs: No Hearing needs: No Vision needs: Yes Questionnaire PHQ-9 Over the last 2 weeks, how often have you been bothered by any of the following problems? Depression Screening Interpretation: Negative Depression Screening Done: Yes Source: Developed by Drs. Tanvir Madera, Lisa Cherry, Jerome Wagoner and colleagues, with an educational rey from [employer]. Thrive Questionnaire Date Thrive assessed: 01/10/24 I am a: Patient What is your living situation today?: I have a steady place to live Within the past 12 months, did the food you bought not last and you didn't have the money to get more?: Often true Within the past 12 months, did you worry whether your food would run out before you got money to buy more?: Never true Do you have trouble paying for medicines?: No Do you have trouble getting transportation to medical appointments?: No Do you have trouble paying your heating and electricity bill?: No Do you have trouble taking care of your child, family member or friend?: No Do you have trouble with day-to-day activities such as bathing, preparing meals, shopping, managing finances, etc.?: No Are you currently unemployed and looking for a job?: No Are you interested in more education?: No Please select the resources that you would like help with: None Currently or been in a relationship where the following occur: I choose not to answer THRIVE Score: 1 AUDIT C Alcohol Use Questionnaire (AUDIT-C) 3. How often do you have six or more drinks on one occasion?: Never Total Score: 0 SHIRLENE-7 AMB Questionnaire SHIRLENE-7 Date SHIRLENE - 7 assessed: 01/10/24 Source: Developed by Drs. Tanvir Madera, Lisa Cherry, Jerome Wagoner and colleagues, with an educational rey from [employer]. Review of Systems Const Reports no additional complaints Eyes Details: [facility], has myopia ENT Reports no additional complaints Card Denies chest pain, Denies irregular heart rhythm, Denies lightheadedness, Denies palpitations and Denies dyspnea on exertion Resp Denies cough and Denies dyspnea on exertion GI Reports abdominal pain (Nonspecific, intermittent typically postprandial), Reports belching, Denies hematochezia, Reports constipation, Reports dyspepsia, Reports heartburn and Reports loose stools Reports as per HPI Musc Reports no additional complaints Skin/Breast Denies rash Neuro Reports no additional complaints Psych Reports no additional complaints Endo Denies palpitations Willem/Lymph Reports no additional complaints Aller/Immun Reports no additional complaints Physical exam (Primary Care) Vital Signs: Last Vital Signs Pulse 83 03/27/24 11:09 BP 140/80 H 03/27/24 11:09 Pulse Ox 98 03/27/24 11:09 Oxygen Delivery Method Room Air 03/27/24 11:09 BMI result Body Mass Index 34.4 Tobacco/Smoking Status: Tobacco use Status Tobacco use date assessed 03/27/24 03/27/24 11:14 Patient Tobacco Use Status Former Tobacco user 03/27/24 11:14 e-Cigarette/Vaping Use Currently Using 03/27/24 11:14 Depression Screening Interpretation: Negative Thrive Assessment: Date of Thrive Assessment Date Thrive assessed 01/10/24 03/27/24 11:14 Currently or been in a relationship where the following occur: I choose not to answer Advance Care Planning discussion: Completed/Scanned Date of discussion: 03/27/24 Who was present: Patient nuclear engineer Forms completed: Health Care Proxy Time spent: 16-45 minutes Actual minutes spent: 3 Const Other: Alert oriented x3, no acute distress noted ambulatory normal gait Orientation/consciousness: patient oriented x3 HENMT Head: Yes normocephalic Ears: external ears normal, TM's normal bilaterally and EAC's normal General nose exam: Normal external nose present Face and sinus: Yes face symmetric Mouth: Normal oral and palatal mucosa present, tongue normal, oropharynx normal and moist mucous membranes Eyes General: appearance normal, both eyes and all related structures Neck Neck: Yes full ROM, Yes no lymphadenopathy and Yes supple Resp Auscultation: clear to auscultation bilaterally Cardio Other: S1-S2 PRESENT REGULAR RATE AND RHYTHM GI Palpation (GI): Soft to palpation, nontender and no guarding Auscultation: normal bowel sounds General: Yes no CVA tenderness Male General Exam: Yes normal external exam Back/Spine/Pelvis Back: no CVA tenderness and No back tenderness Skin General skin exam: no rashes or lesions noted Neuro General: patient oriented x3, gait normal, tone normal, Normal light touch and pain sensation, no focal motor deficits and CN's II-XI intact bilaterally Extrem General: Yes full ROM, Yes no joint enlargement, Yes no clubbing, cyanosis or edema and Yes normal gait Psych Appearance: grossly normal Mental Status: mental status grossly normal Speech and movement: Normal speech and movement present Affect: normal affect Coding Level of Care Code Est Pt Prev Care 40-64y(80032) Diagnoses Annual visit for general adult medical examination with abnormal findings Z00.01 Eosinophilic esophagitis K20.0 ADHD (attention deficit hyperactivity disorder) F90.9 PTSD (post-traumatic stress disorder) F43.10 Asymptomatic HIV infection Z21 Impaired fasting glucose R73.01 Dyslipidemia E78.5 Numbness and tingling R20.0; R20.2 Encounter for counseling regarding advance directives Z71.89 Additional Codes Vital Signs *Quality* - Advance Care Planning discussion: Completed/Scanned ([id number]) Vital Signs *Quality* - Time spent: 16-45 minutes ([id number]) Assessment & Plan Assessment & Plan (1) Annual visit for general adult medical examination with abnormal findings: Code(s): Z00.01 - Encounter for general adult medical examination with abnormal findings Plan: Will check appropriate labs. Recommended dental visit every 6 months and reg ular eye exams, at least every 2 years. Take adequate calcium in diet and vitamin-D 3 at 2000 IU per cap once a day, in addition to weight-bearing exercises to help maintain good muscle tone and weight control. Instructed to do self-testicular exam check for any mass. He currently goes to GI Clinic at [facility] and has a plan colonoscopy and EGD already scheduled. Reminded to get his yearly flu vaccination, COVID booster, has had his pneumococcal vaccinations and Tdap (2) Eosinophilic esophagitis: Comment: Complex GI history- [facility]-not great historian Request records Code(s): K20.0 - Eosinophilic esophagitis Category: Medical Plan: Currently on omeprazole 40 mg b.i.d., followed by GI at [facility], with planned repeat EGD and colonoscopy (3) ADHD (attention deficit hyperactivity disorder): Comment: Extremely anxious, unable to sit still Irritable Code(s): F90.9 - Attention-deficit hyperactivity disorder, unspecified type Category: Medical Plan: Followed by psychiatric nurse practitioner, currently on dextroamphetamine- amphetamine with good results, (4) PTSD (post-traumatic stress disorder): Comment: sees a therapist . Jessica Grady , and prescriber - Precious García Code(s): F43.10 - Post-traumatic stress disorder, unspecified Category: Medical Plan: He sees therapist regularly (5) Asymptomatic HIV infection: Comment: ff;d by Dr Eliecer Veliz at [facility] Code(s): Z21 - Asymptomatic human immunodeficiency virus [HIV] infection status Category: Medical Plan: Currently on Biktarvy followed by Dr. Eliecer Veliz at [facility] (6) Impaired fasting glucose: Code(s): R73.01 - Impaired fasting glucose Category: Medical Plan: Your previous fasting blood sugars were elevated above 100 mg/dL. Impaired glucose metabolism increases the risk for developing diabetes mellitus type 2, as well as heart attack and stroke later on. Lifestyle changes that promotes weight loss, healthy eating habits, and regular exercise are important, and can prevent the progression to diabetes (7) Dyslipidemia: Code(s): E78.5 - Hyperlipidemia, unspecified Category: Medical Plan: Fasting lipid panel ordered (8) Numbness and tingling: Code(s): R20.0 - Anesthesia of skin; R20.2 - Paresthesia of skin Category: Medical Plan: Check vitamin B6, CBC and vitamin B12 and folic acid (9) Encounter for counseling regarding advance directives: Code(s): Z71.89 - Other specified counseling Plan: Initiated the conversation about Advanced Directives. Advanced Directives help patients prepare for current and future decisions about their medical treatment and place of care. Discussed with patient that it is a process where a patients current condition and prognosis are reviewed, their wishes for information regarding their illness are elicited, and likely medical dilemmas are presented and options discussed. Healthcare proxy form completed today. The form can be amended as needed, reviewed yearly and make changes as needed Orders: Orders Hemoglobin A1c 03/27/24 E78.5 - Hyperlipidemia, unspecified, F43.10 - Post-traumatic stress disorder, unspecified, F90.9 - Attention-deficit hyperactivity disorder, unspecified type, K20.0 - Eosinophilic esophagitis, R20.0 - Anesthesia of skin, R20.2 - Paresthesia of skin, R73.01 - Impaired fasting glucose, Z00.01 - Encounter for general adult medical examination with abnormal findings, Z21 - Asymptomatic human immunodeficiency virus [HIV] infection status, Z71.89 - Other specified counseling Alanine Aminotransferase 03/27/24 E78.5 - Hyperlipidemia, unspecified, F43.10 - Post-traumatic stress disorder, unspecified, F90.9 - Attention-deficit hyper activity disorder, unspecified type, K20.0 - Eosinophilic esophagitis, R20.0 - Anesthesia of skin, R20.2 - Paresthesia of skin, R73.01 - Impaired fasting glucose, Z00.01 - Encounter for general adult medical examination with abnormal findings, Z21 - Asymptomatic human immunodeficiency virus [HIV] infection status, Z71.89 - Other specified counseling Complete Blood Count Auto Diff 03/27/24 E78.5 - Hyperlipidemia, unspecified, F43.10 - Post-traumatic stress disorder, unspecified, F90.9 - Attention-deficit hyperactivity disorder, unspecified type, K20.0 - Eosinophilic esophagitis, R20.0 - Anesthesia of skin, R20.2 - Paresthesia of skin, R73.01 - Impaired fasting glucose, Z00.01 - Encounter for general adult medical examination with abnormal findings, Z21 - Asymptomatic human immunodeficiency virus [HIV] infection status, Z71.89 - Other specified counseling Vitamin D 25-OH Total 03/27/24 E78.5 - Hyperlipidemia, unspecified, F43.10 - Post-traumatic stress disorder, unspecified, F90.9 - Attention-deficit hyperactivity disorder, unspecified type, K20.0 - Eosinophilic esophagitis, R20.0 - Anesthesia of skin, R20.2 - Paresthesia of skin, R73.01 - Impaired fasting glucose, Z00.01 - Encounter for general adult medical examination with abnormal findings, Z21 - Asymptomatic human immunodeficiency virus [HIV] infection status, Z71.89 - Other specified counseling Vitamin B6 03/27/24 E78.5 - Hyperlipidemia, unspecified, F43.10 - Post- traumatic stress disorder, unspecified, F90.9 - Attention-deficit hyperactivity disorder, unspecified type, K20.0 - Eosinophilic esophagitis, R20.0 - Anesthesia of skin, R20.2 - Paresthesia of skin, R73.01 - Impaired fasting glucose, Z00.01 - Encounter for general adult medical examination with abnormal findings, Z21 - Asymptomatic human immunodeficiency virus [HIV] infection status, Z71.89 - Other specified counseling Aspartate Amino Transferase 03/27/24 E78.5 - Hyperlipidemia, unspecified, F43.10 - Post-traumatic stress disorder, unspecified, F90.9 - Attention-deficit hyperactivity disorder, unspecified type, K20.0 - Eosinophilic esophagitis, R20.0 - Anesthesia of skin, R20.2 - Paresthesia of skin, R73.01 - Impaired fasting glucose, Z00.01 - Encounter for general adult medical examination with abnormal findings, Z21 - Asymptomatic human immunodeficiency virus [HIV] infection status, Z71.89 - Other specified counseling Lipid Panel 03/27/24 E78.5 - Hyperlipidemia, unspecified, F43.10 - Post- traumatic stress disorder, unspecified, F90.9 - Attention-deficit hyperactivity disorder, unspecified type, K20.0 - Eosinophilic esophagitis, R20.0 - Anesthesia of skin, R20.2 - Paresthesia of skin, R73.01 - Impaired fasting glucose, Z00.01 - Encounter for general adult medical examination with abnormal findings, Z21 - Asymptomatic human immunodeficiency virus [HIV] infection status, Z71.89 - Other specified counseling Vitamin B12 and Folate 03/27/24 E78.5 - Hyperlipidemia, unspecified, F43.10 - Post-traumatic stress disorder, unspecified, F90.9 - Attention-deficit hyperactivity disorder, unspecified type, K20.0 - Eosinophilic esophagitis, R20.0 - Anesthesia of skin, R20.2 - Paresthesia of skin, R73.01 - Impaired fasting glucose, Z00.01 - Encounter for general adult medical examination with abnormal findings, Z21 - Asymptomatic human immunodeficiency virus [HIV] infection status, Z71.89 - Other specified counseling Basic Metabolic Panel Fasting 03/27/24 R20.0 - Anesthesia of skin, R20.2 - Paresthesia of skin, R73.01 - Impaired fasting glucose, Z00.01 - Encounter for general adult medical examination with abnormal findings
[2024-03-27 11:09] VITALS: BP 140/80; PULSE 83; O2SAT 98; BMI 34.4
== END 2024-03-27 12:02 | disposition home or self-care (01) ==
PROVIDERS: PCP Internal Medicine; Visit Provider Internal Medicine
DX: Z00.01 Encounter for general adult medical examination with abnormal findings (principal); K20.0 Eosinophilic esophagitis; F90.9 Attention-deficit hyperactivity disorder, unspecified type; Z21 Asymptomatic human immunodeficiency virus [HIV] infection status; F43.10 Post-traumatic stress disorder, unspecified; R73.01 Impaired fasting glucose; E78.5 Hyperlipidemia, unspecified; R20.0 Anesthesia of skin; R20.2 Paresthesia of skin; Z71.89 Other specified counseling; Z00.00 Encounter for general adult medical examination without abnormal findings

== ENCOUNTER → 2024-03-27 10:21 | Outpatient (BNVA) | payer OTHER, SELFPAY | PROVIDERS: PCP Internal Medicine; Visit Provider Internal Medicine | DX: Z00.01 Encounter for general adult medical examination with abnormal findings (principal); E78.5 Hyperlipidemia, unspecified; F90.9 Attention-deficit hyperactivity disorder, unspecified type; K20.0 Eosinophilic esophagitis; F43.10 Post-traumatic stress disorder, unspecified; R73.01 Impaired fasting glucose; R20.0 Anesthesia of skin; R20.2 Paresthesia of skin; Z21 Asymptomatic human immunodeficiency virus [HIV] infection status; Z71.89 Other specified counseling | CPT/HCPCS: 99396; 99497 ==

== ENCOUNTER 2024-04-25 12:54 | Outpatient (AMB) | payer OTHER, SELFPAY ==
--- NOTE | 2024-04-25 12:54 | MHC.OFFVIS ---
Intake Visit Reasons: 6m follow up Intake Note: Patient is Present for PVR Follow up Urology Med: Tadalafil Antibiotic Allergy: None Blood Thinner: None Last PVR: 27mls Todays PVR: 12ml Dye Feeder Required: No Whipped Topping Supervisor: Whipped Topping Supervisor Present Accompanied by: Family/Other Allergies bee pollen [BEE STINGS] Allergy (Severe, Verified 04/25/24 13:27) ANAPHYLAXIS fentanyl Allergy (Mild, Verified 04/25/24 13:27) Agitated bee stings/yellow jackets Allergy (Unknown, Uncoded 04/25/24 13:27) anaphylaxis Medication List - Last Reconciled 04/25/24 by Angie John, INTERNATIONAL ACCOUNT MANAGER- mkrumqlqd-ogocbmho-luxorwt ala 30-120-15 mg (Biktarvy) tabs PO Combivent Respimat 20-100 mcg/actuation (ipratropium-albuterol) 2 puffs PO Q6H PRN NS dextroamphetamine-amphetamine 50 mg ER 1 cap PO QAM epinephrine 0.3 mg (0.3 mL) IM DIRECTED PRN fluticasone propionate 110 mcg/actuation 1 puff inhalation BID omeprazole 40 mg PO BID tadalafil (Cialis) 20 mg PO DAILY 90 days HPI Comments Details: Lance is a pleasant 44-year-old male patient of Dr. Inman who was accompanied by his significant other at today's office visit. He has a past medical history of HIV with undetectable viral load, history of substance abuse, no longer using except for occasional marijuana, has asthma, hyperlipidemia, impaired fasting glucose, ADHD, and history of eosinophilic esophagitis. He presents to the office today for follow-up of his lower urinary tract symptoms and erectile dysfunction. In discussion with the patient today reports to be doing and feeling well. He reports feeling 20 mg as needed Cialis has been helpful in obtaining and maintaining his erections. He is requesting a refill. He currently denies any bothersome urinary issues or concerns. He denies urinary urgency, urinary frequency, incontinence, nocturia, hematuria, dysuria, foul smelling urine, changes to urinary stream, flank pain, fever, and or chills. He is happy with his current voiding parameters. Patient with a history of lower urinary tract symptoms with a previous workup of a bladder ultrasound that noted partially distended bladder. Pre void bladder volume is approximately 100 mL. Postvoid bladder volume is approximately 2 mL. The prostate volume is approximately 40 mL. PSA 07/02--1.0. 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 He reports attempting to limit monster drinks since his last office visit here and feels this has significantly improved his lower urinary tract symptoms he had been experiencing. In office urinalysis results reviewed with the patient today. PVR 12mL. [facility] Medical History Numbness and tingling Post herpetic neuralgia Difficult or painful urination Urinary hesitancy Abdominal bloating Epigastric pain Dyslipidemia Thoracic ascending aortic aneurysm Preoperative examination Chronic idiopathic constipation Chronic bronchitis Impaired fasting glucose Asymptomatic HIV infection PTSD (post-traumatic stress disorder) ADHD (attention deficit hyperactivity disorder) Eosinophilic esophagitis Surgical History Hx of appendectomy Hx of knee surgery History of esophagogastroduodenoscopy (EGD) Family History Father No problems noted. Mother CAD (coronary artery disease) Mental health disorder Brother No problems noted. Sister No problems noted. Sister No problems noted. Son No problems noted. Daughter No problems noted. Paternal Grandfather Substance use disorder Paternal Uncle Substance use disorder Paternal Uncle Substance use disorder Social History Housing: Condominium Patient Tobacco Use Status: Former Tobacco user e-Cigarette/Vaping Use: Currently Using service: No Current occupational status: employed Cognitive needs: No Hearing needs: No Vision needs: Yes Review of Systems Const Reports as per HPI Eyes Reports no additional complaints ENT Reports no additional complaints Card Details: Patient reports following up with cardiology for aortic aneurysm Resp Reports no additional complaints GI Details: Patient reports issues with constipation Reports as per HPI Musc Reports no additional complaints Neuro Reports as per HPI Psych Reports as per HPI Endo Reports as per HPI Willem/Lymph Reports as per HPI Aller/Immun Reports as per HPI Physical Exam Const General: cooperative, healthy appearing, comfortable, no acute distress, well developed, alert and awake Orientation/consciousness: patient oriented x3 Limitations: no limitations HEENT Head: Yes normal to inspection, Yes normocephalic and Yes atraumatic Ears: hearing grossly normal bilaterally Eyes General: appearance normal, both eyes and all related structures Neck Neck: Yes normal visual inspection and Yes trachea midline Chest Chest palpation & inspection: normal inspection of the chest Resp Effort & Inspection: normal respiratory effort and able to speak in complete sentences Cardio Rate: regular rate GI Inspection: Yes normal to inspection General: Yes no CVA tenderness Back/Spine/Pelvis Back: no CVA tenderness Skin General skin exam: no rashes or lesions noted Neuro General: patient oriented x3 Extrem General: Yes normal to inspection Psych Appearance: grossly normal and well kempt Mental Status: mental status grossly normal Speech and movement: Normal speech and movement present (fast speech ) and Clear speech present Affect: normal affect Attitude: cooperative Thought process: Racing thoughts present Thought content: Normal thought content present Insight: Fair insight present (Psych) Judgement: Fair judgement present (Psych) Office Procedures Post Void Residual Post Residual Void Post Void Residual (PVR): 12 [id number] Void Residual by ultrasound Results AMB Urinalysis, Automated UA Leukoctes 0 Tawanna/uL Last Edit by Galina Pollard [facility] on 04/25/24 13:04 UA Nitrite Negative Last Edit by Galina Pollard [facility] on 04/25/24 13:04 UA Urobilinogen 0.2 mg/dL Last Edit by Galina Pollard [facility] on 04/25/24 13:04 UA Protein 15 mg/dL Last Edit by Galina Pollard [facility] on 04/25/24 13:04 UA pH 6.0 Last Edit by Galina Pollard [facility] on 04/25/24 13:04 UA Blood 0 Andry/uL Last Edit by Galina Pollard [facility] on 04/25/24 13:04 UA Specific [place] 1.025 Last Edit by Galina Pollard [facility] on 04/25/24 13:04 UA Ketone Negative Last Edit by Galina Pollard [facility] on 04/25/24 13:04 UA Bilirubin 0 mg/dL Last Edit by Galina Pollard [facility] on 04/25/24 13:04 UA Glucose 0 mg/dL Last Edit by Galina Pollard [facility] on 04/25/24 13:04 Results Reviewed Results Reviewed: Laboratory Last Values Urine pH (Auto) 6.0 04/25/24 12:58 Specific [place] (Auto) 1.025 04/25/24 12:58 Urine Protein (Auto) 15 mg/dL 04/25/24 12:58 Glucose (UA)(Auto) 0 mg/dL 04/25/24 12:58 Urine Ketones (Auto) Negative 04/25/24 12:58 Urine Blood (Auto) 0 Andry/uL 04/25/24 12:58 Urine Nitrite (Auto) Negative 04/25/24 12:58 Urine Bilirubin (Auto) 0 mg/dL 04/25/24 12:58 Urine Urobilinogen (Auto) 0.2 mg/dL 04/25/24 12:58 Leukocyte Esterase (Auto) 0 Tawanna/uL 04/25/24 12:58 Assessment & Plan Assessment & Plan (1) Erectile dysfunction: Code(s): N52.9 - Male erectile dysfunction, unspecified Category: Medical (2) Lower urinary tract symptoms: Code(s): R39.9 - Unspecified symptoms and signs involving the genitourinary system Category: Medical (3) Enlarged prostate: Code(s): N40.0 - Benign prostatic hyperplasia without lower urinary tract symptoms Category: Medical Plan In office urinalysis results reviewed with the patient today; as noted above. PVR 12mLs Continue as needed Cialis as discussed and prescribed; refill provided. Patient currently denies any bothersome urinary issues or concerns. He reports be happy with current voiding parameters. Discussed further workup of ED to include penile Doppler however patient reports be happy with p.r.n./on demand Cialis and feels this has been adequate with obtaining and maintaining his erections. Discussed lifestyle modifications to assist with symptoms of erectile dysfunction as well as overall health and well-being. Follow-up in 6 months with PVR; or sooner with any issues, concerns, or questions. Orders: Orders AMB Urinalysis Automated Today Z13.9 - Encounter for screening, unspecified AMB Post Void Residual by ultrasound Today N40.0 - Benign prostatic hyperplasia without lower urinary tract symptoms Medications: Refilled tadalafil (Cialis) [id number] [facility] [id number] Member [id number] 20 mg PO DAILY 90 days 45 tabs 3RF Patient Instructions: The patient had an opportunity to ask questions regarding the treatment plan. All questions were answered. Physical exam, labs, and imaging were discussed and reviewed in detail. As well as risks, benefits, and discussion of treatment choices. No major barriers to understanding were identified. The patient expressed understanding and agreement with the above treatment plan. The patient was made aware they should contact our office by phone for worsening of their current condition, the appearance of new symptoms, or with any questions or concerns. Compliance is encouraged with any medications and follow up testing that is ordered. It is a privilege to be allowed the opportunity to participate in? your urological care.? Again, if you have any questions or concerns If you have any questions or concerns please do not hesitate to contact me. The office is [phone]. This note is constructed using voice recognition software. While every effort has been made to ensure accuracy firefighter marine errors may have been included. Yours sincerely, LATASHA Jeffers Coding Level of Care Code Est Pt Level 3 (66243) Diagnoses Erectile dysfunction N52.9 Lower urinary tract symptoms R39.9 Enlarged prostate N40.0 CPT Codes Post Residual Void - PVR CPT Code: 15971-[id number] Void Residual by ultrasound ([id number])
== END 2024-04-25 13:14 | disposition home or self-care (01) ==
PROVIDERS: PCP Internal Medicine; Visit Provider Nurse Practitioner Family
DX: N52.9 Male erectile dysfunction, unspecified (principal); R39.9 Unspecified symptoms and signs involving the genitourinary system; N40.0 Benign prostatic hyperplasia without lower urinary tract symptoms; Z13.9 Encounter for screening, unspecified
CPT/HCPCS: 99213

== ENCOUNTER → 2024-04-25 12:54 | Outpatient (BNVA) | payer OTHER, SELFPAY | PROVIDERS: PCP Internal Medicine; Visit Provider Nurse Practitioner Family | DX: N52.9 Male erectile dysfunction, unspecified (principal); R39.9 Unspecified symptoms and signs involving the genitourinary system; N40.0 Benign prostatic hyperplasia without lower urinary tract symptoms | CPT/HCPCS: 51798; 81003; 99212 ==

== ENCOUNTER → 2024-08-07 13:27 | Outpatient (BNVA) | payer OTHER, SELFPAY | PROVIDERS: PCP Internal Medicine; Visit Provider Internal Medicine | DX: Z13.89 Encounter for screening for other disorder (principal) ==

== ENCOUNTER 2024-10-24 15:03 | Outpatient (AMB) | payer OTHER, SELFPAY ==
--- NOTE | 2024-10-24 15:03 | A.OFFVIS_ITS ---
Intake Visit Reasons: 6 month follow up Intake Note: Patient presents today for tele visit follow up on: erectile dysfunction Urology Medications: Tadalafil Antibiotic Allergy: None Blood Thinner: None Pmp Required: No Accompanied by: Family/Other Allergies bee pollen (BEE STINGS) Allergy (Severe, Verified 10/24/24 15:13) ANAPHYLAXIS fentanyl Allergy (Mild, Verified 10/24/24 15:13) Agitated bee stings/yellow jackets Allergy (Unknown, Uncoded 10/24/24 15:13) anaphylaxis Medication List - Last Reconciled 10/24/24 by DUKE Jeffers- dkeszngjm-rdrppsbc-uvowdex ala 30-120-15 mg (Biktarvy) tabs PO Combivent Respimat 20-100 mcg/actuation (ipratropium-albuterol) 1 puff PO Q6H PRN NS dextroamphetamine-amphetamine 50 mg ER 1 cap PO QAM epinephrine 0.3 mg (0.3 mL) IM DIRECTED PRN fluticasone propionate 110 mcg/actuation 1 puff PO BID omeprazole 40 mg PO BID tadalafil (Cialis) 20 mg PO DAILY 90 days tadalafil 5 mg PO DAILY 30 days HPI Comments Details: Lance is a pleasant 44-year-old male patient of Dr. Inman. He has a past medical history of HIV with undetectable viral load, history of substance abuse, no longer using except for occasional marijuana, has asthma, hyperlipidemia, impaired fasting glucose, ADHD, and history of eosinophilic esophagitis. He is being followed up on today via telehealth for his ED. in discussion with the patient today he discusses feeling daily dosing of tadalafil and p.r.n. dosing prior to sexual activity has been extremely helpful. He is requesting refill. He currently denies any bothersome urinary issues or concerns. He denies urinary urgency, urinary frequency, incontinence, nocturia, hematuria, dysuria, foul smelling urine, changes to urinary stream, flank pain, fever, and or chills. He is happy with his current voiding parameters. Patient with a history of lower urinary tract symptoms with a previous workup of a bladder ultrasound 08/02 that noted partially distended bladder. Pre void bladder volume is approximately 100 mL. Postvoid bladder volume is approximately 2 mL. The prostate volume is approximately 40 mL. PSA 07/02--1.0. He continues with his sobriety. [facility] Medical History Numbness and tingling Post herpetic neuralgia Difficult or painful urination Urinary hesitancy Abdominal bloating Epigastric pain Dyslipidemia Thoracic ascending aortic aneurysm Preoperative examination Chronic idiopathic constipation Chronic bronchitis Impaired fasting glucose Asymptomatic HIV infection PTSD (post-traumatic stress disorder) ADHD (attention deficit hyperactivity disorder) Eosinophilic esophagitis Surgical History Hx of appendectomy Hx of knee surgery History of esophagogastroduodenoscopy (EGD) Family History Father No problems noted. Mother CAD (coronary artery disease) Mental health disorder Brother No problems noted. Sister No problems noted. Sister No problems noted. Son No problems noted. Daughter No problems noted. Paternal Grandfather Substance use disorder Paternal Uncle Substance use disorder Paternal Uncle Substance use disorder Social History Housing: Condominium Patient Tobacco Use Status: Former Tobacco user e-Cigarette/Vaping Use: Currently Using service: No Current occupational status: employed Cognitive needs: No Hearing needs: No Vision needs: Yes Review of Systems Const Reports as per HPI Eyes Reports no additional complaints ENT Reports no additional complaints Card Details: Patient reports following up with cardiology for aortic aneurysm Resp Reports no additional complaints GI Details: Patient reports issues with constipation Reports as per HPI Musc Reports no additional complaints Neuro Reports as per HPI Psych Reports as per HPI Endo Reports as per HPI Willem/Lymph Reports as per HPI Aller/Immun Reports as per HPI Physical Exam Const General: cooperative Orientation/consciousness: patient oriented x3 Resp Effort & Inspection: able to speak in complete sentences Neuro General: patient oriented x3 Psych Speech and movement: Clear speech present Affect: normal affect Attitude: cooperative Thought process: Normal thought process present Thought content: Normal thought content present Insight: Fair insight present (Psych) Judgement: Fair judgement present (Psych) Telehealth Telehealth Telehealth Platform: [employer] Location of provider rendering services: practice address Location of patient: address on file Patient Identification confirmed using: Name, : Yes Telehealth method: voice only Patient verbally consented to treatment: Yes Patient verbally consented to billing insurance company: Yes Patient informed of any privacy concerns related to visit: Yes Minutes spent on Phone/Video with Pt.: 15 Assessment & Plan Assessment & Plan (1) Enlarged prostate: Code(s): N40.0 - Benign prostatic hyperplasia without lower urinary tract symptoms Category: Medical (2) Erectile dysfunction: Code(s): N52.9 - Male erectile dysfunction, unspecified Category: Medical (3) Lower urinary tract symptoms: Code(s): R39.9 - Unspecified symptoms and signs involving the genitourinary system Category: Medical Plan Continue daily dosing of tadalafil with p.r.n dosing prior to sexual activity; refill provided Patient currently denies any bothersome urinary issues or concerns. He reports be happy with current voiding parameters. Discussed further workup of ED to include penile Doppler however patient reports be happy with p.r.n./on demand Cialis and feels this has been adequate with obtaining and maintaining his erections. Discussed lifestyle modifications to assist with symptoms of erectile dysfunction as well as overall health and well-being. Follow-up in 6 months; or sooner with any issues, concerns, or questions. Medications: Refilled tadalafil (Cialis) [id number] [facility] [id number] Member [id number] 20 mg PO DAILY 45 tabs 3RF 90 days tadalafil Please dont use insurance, Use Good RX coupon attaches [id number] [facility] [id number] Member [id number] 5 mg PO DAILY 90 tabs 1RF 30 days Patient Instructions: The patient had an opportunity to ask questions regarding the treatment plan. All questions were answered. Physical exam, labs, and imaging were discussed and reviewed in detail. As well as risks, benefits, and discussion of treatment choices. No major barriers to understanding were identified. The patient expressed understanding and agreement with the above treatment plan. The patient was made aware they should contact our office by phone for worsening of their current condition, the appearance of new symptoms, or with any qu estions or concerns. Compliance is encouraged with any medications and follow up testing that is ordered. It is a privilege to be allowed the opportunity to participate in? your urological care.? Again, if you have any questions or concerns If you have any questions or concerns please do not hesitate to contact me. The office is [phone]. This note is constructed using voice recognition software. While every effort has been made to ensure accuracy police liaison errors may have been included. Yours sincerely, LATASHA Jeffers Coding Level of Care Code Tele Est Pt Level 3 (06270) Diagnoses Enlarged prostate N40.0 Erectile dysfunction N52.9 Lower urinary tract symptoms R39.9
--- OUTSIDE RECORDS SUMMARY | 2024-10-24 16:19 | XMS_ITS ---
Author Name [facility] Organization Unknown Problems Problem Status Onset Date Problem Type Date of Resoluti on Source Chemical exposure active EncounterDiagnosisAct [facility] Encounters Encounter Type Encounter Reason Primary Diagnosis Location Date Emergency Contact with and (suspected) exposure to other hazardous, chiefly nonmedicinal, chemicals Contact with and (suspected) exposure to other hazardous, chiefly nonmedicinal, chemicals [facility] 10/05/2023 Care Team Organization Name Specialty Phone Email Start Date End Robret prasad [facility] 2023 [facility] 10/05/2023
--- OUTSIDE RECORDS SUMMARY | 2024-10-24 16:19 | XMS_ITS | Clinical Summary ---
Author Organization [address] Address [address] [place] [id number] Phone Care Team Providers Care Concrete Gun Operator Name Role Phone Unavailable Primary Care Provider Unavailabl e Allergies No known active allergies Social History Tobacco Use Types Packs/Day Years Used Date Smoking Tobacco: Never Assessed Sex and Gender Information Value Date Recorded Sex Assigned at Male 02/05/2023 4:29 PM EDT Legal Sex Male 11:17 PM EDT Gender Identity Male 02/05/2023 4:29 PM EDT Sexual Orientation Not on file Last Filed Vital Signs Vital Sign Reading Time Taken Comments Blood Pressure 109/67 02/05/2023 5:20 PM EDT Pulse 71 02/05/2023 5:20 PM EDT Temperature 36.2 C (97.2 F) 02/05/2023 5:20 PM EDT Respiratory Rate 20 02/05/2023 5:20 PM EDT Oxygen Saturation 97% 02/05/2023 5:20 PM EDT Inhaled Oxygen Concentration - - Weight 101 kg (222 lb 10.6 oz) 02/05/2023 5:20 P M EDT Height 180.3 cm (5' 11 ) 02/05/2023 5:20 PM EDT Body Mass Index 31.06 02/05/2023 5:20 PM EDT Plan of Treatment Health Maintenance Due Date Last Done Comments HIV screening 01/07/1993 Hepatitis C screening 01/07/1998 Tetanus adult (Td q 10,TDAP once) 2000 Lipid disorder screening 2020 Covid-19 vaccine series ( - 2023- season) 2023 Influenza vaccine 12/11/2024 RSV Immunization (1 - 1-dose 75+ series) 01/07/2055 Meningococcal Vaccine Aged Out No ziyad kierra eligible based on patient's age to complete this topic Pneumococcal Vaccine (2 - 49 years) Aged Out No longer eligible based on patient's age to complete this topic Insurance [id number] MEDICAID MEDICARE MEDICARE MANAGED MISC [id number] MEDICAID MEDICARE MEDICARE MANAGED MISC MARY CRUZ [id number] MEDICAID MEDICARE MEDICARE MANAGED [facility] MARY CRUZ [id number]
--- OUTSIDE RECORDS SUMMARY | 2024-10-24 16:19 | XMS_ITS | Clinical Summary ---
Author Organization [facility] Address [address] [place] [address] Care Team Providers Care Chief Crna Name Role Phone Cathie Evi L DO Primary Care Provider Social History Tobacco Use Types Packs/Day Years Used Date Smoking Tobacco: Never Assessed Sex and Gender Information Value Date Recorded Sex Assigned at Not on file Legal Sex Male 12:41 AM EST Gender Identity Not on file Sexual Orientation Not on file Obstetrics History Last Filed Vital Signs Vital Sign Reading Time Taken Comments Blood Pressure 118/80 04/03/2022 3:13 PM EST Pulse 75 04/03/2022 3:13 PM EST Temperature - - Respiratory Rate - - Oxygen Saturation - - Inhaled Oxygen Concentration - - Weight 98.9 kg (218 lb) 04/03/2022 3:13 PM EST Height 180.3 cm (5' 11 ) 04/03/2022 3:13 PM EST Body Mass Index 30.4 04/03/2022 3:13 PM EST Plan of Treatment Health Maintenance Due Date Last Done Comments DTaP,Tdap,and Td Vaccines (1 - Tdap) 01/07/1999 Hepatitis B Vaccines (1 of 3 - 19+ 3-dose series) 01/07/1999 Cholesterol Screening (Lipid Panel) 03/15/2022 Depression Screening 03/15/2022 HIV Screening 03/15/2022 Hepatitis C Screening 03/15/2022 Social Influencers of Health Screening 03/15/2022 COVID-19 Vaccine (1 - 2023-2 5 season) 2023 Influenza Vaccine (#1) 2024 HIB Vaccines Aged Out No longer eligi ble based on patient's age to complete this topic HPV Vaccines Aged Out No longer eligi ble based on patient's age to complete this topic Hepatitis A Vaccines Aged Out No long er eligible based on patient's age to complete this topic IPV Vaccines Aged Out No longer eligi ble based on patient's age to complete this topic MMR Vaccines Aged Out No longer eligi ble based on patient's age to complete this topic Meningococcal ACWY Vaccine Aged Out N o longer eligible based on patient's age to complete this topic Meningococcal B Vaccine Aged Out No l onger eligible based on patient's age to complete this topic Pneumococcal Vaccine: Pediat rics (0 to 5 Years) and At-Risk Patients (6 to 49 Years) Aged Out No longer eligible b ased on patient's age to complete this topic RSV Immunization Patients Un antonio 20 months Aged Out No longer eligible b ased on patient's age to complete this topic Varicella Vaccines Aged Out No longer eligible based on patient's age to complete this topic Care Teams Chief Crna Relationship Specialty Start Date End Date Evi Brand DO [address] [place] [address] PCP - General Pediatrics 04/26/18
--- OUTSIDE RECORDS SUMMARY | 2024-10-24 16:19 | XMS_ITS | Clinical Summary ---
Author Organization [facility] Address [address] [place] [address] Care Team Providers Care Certified Rehabilitation Counselor Name Role Phone Unavailable Primary Care Provider Unavailabl e Medications No known medications Active Problems No known active problems Social History Tobacco Use Types Packs/Day Years Used Date Smoking Tobacco: Never Assessed Sex and Gender Information Value Date Recorded Sex Assigned at Male 10/05/2023 7:49 AM EDT Gender Identity Not on file Sexual Orientation Not on file Job Start Date Occupation Industry Not on file Not on file Not on file Last Filed Vital Signs Vital Sign Reading Time Taken Comments Blood Pressure 134/109 10/05/2023 7:22 AM EDT Pulse 104 10/05/2023 7:22 AM EDT Temperature - - Respiratory Rate 20 10/05/2023 7:22 AM EDT Oxygen Saturation 99% 10/05/2023 7:22 AM EDT Inhaled Oxygen Concentration - - Weight 99.8 kg (220 lb) 10/05/2023 7:22 AM EDT Height 180.3 cm (5' 11 ) 10/05/2023 7:22 AM EDT Body Mass Index 30.68 10/05/2023 7:22 AM EDT Plan of Treatment Not on file
--- OUTSIDE RECORDS SUMMARY | 2024-10-24 16:19 | XMS_ITS | Clinical Summary ---
Author Organization [employer] Address [address] [facility] [address] [place] [address] Care Team Providers Care Lap Winder Name Role Phone Provider, Not In System Primary Care Provider Un available Michelle Reich OD Unavailable Allergies Active Allergy Reactions Criticality Noted Date Comments Bee Venom Anaphylaxis High 12/06/2022 Medications omeprazole (PriLOSEC) [address] capsule Take 40 mg by mouth 2 times daily. 3 Active Biktarvy 50-200-25 MG tablet 3 Active atorvastatin (Lipitor) 40 MG tablet 3 Active EPINEPHrine (Epipen) 0.3 MG/0.3ML injection syringe USE DIRECTED FOR ANAPHYLAXIS 3 Active Flovent HFA 220 MCG/ACT inhaler Inhale 1 puff 2 times daily. 3 Active Combivent Respimat 20-100 MCG/ACT inhaler 3 Active Mydayis 50 MG 24 hr capsule Take 50 mg by mouth in the morning. 3 Active tamsulosin (Flomax) 0.4 MG 24 hr capsule TAKE ONE CAPSULE BY MOUTH EVERY DAY AT BEDTIME 3 Active Active Problems No known active problems Social History Tobacco Use Types Packs/Day Years Used Date Smoking Tobacco: Former Cigarettes Q uit: 2015 Cigars Tobacco Cessation:Counseling Given: Not Answered Sex and Gender Information Value Date Recorded Sex Assigned at Male 02/09/2022 10:23 AM EDT Legal Sex Male 10:23 AM EDT Gender Identity Male 12/23/2022 2:26 PM EDT Sexual Orientation Straight 12/23/2022 2: 26 PM EDT Last Filed Vital Signs Vital Sign Reading Time Taken Comments Blood Pressure 110/82 01/20/2023 4:20 PM EDT Pulse - - Temperature 36.3 C (97.4 F) 01/20/2023 4:20 PM EDT Respiratory Rate - - Oxygen Saturation - - Inhaled Oxygen Concentration - - Weight - - Height - - Body Mass Index - - Plan of Treatment Health Maintenance Due Date Last Done Comments Depression Screening 1980 HIV Screening 1980 Lipid Panel 1980 SDOH Screening 1980 Disability Screening 1980 Alcohol/Substance Use Screening 1992 Tobacco Screening 1992 Family Planning (PISQ) 01/07/1995 HPV Vaccines (1 - Male 3-dos e series) 01/07/1995 Hepatitis C Screening 01/07/1998 COVID-19 Vaccine (3 - 2023-2 5 season) 2023 01/23/2021, 11/18/2020 Influenza Vaccine (#1) 2024 03/07/2019 DTaP/Tdap/Td Vaccines (2 - T d or Tdap) 10/20/2028 10/20/2018 Zoster Vaccines (1 of 2) 01/07/2030 RSV Patients and Patients Aged 60 years or older (1 - 1-dose 75+ series) 01/07/2055 Meningococcal B Vaccine Aged Out 03/07/20 19, 11/22/2018 No longer eligible based on patient's age to complete this topic Meningococcal Vaccine Aged Out 03/07/2019 , 11/22/2018 No longer eligible based on patient's age to complete this topic Pneumococcal Vaccine: Pediatrics (0 to 5 Years) and At-Risk Patients (6 to 49) Years Aged Out 05/09/2019, 10/20/2018 No longer eligible based on patient's age to complete this topic Hepatitis B Vaccines Completed 11/30/2019, 03/07/2019, 11/22/2018 HIB Vaccines Aged Out No longer eligi ble based on patient's age to complete this topic Hepatitis A Vaccines Aged Out No long er eligible based on patient's age to complete this topic IPV Vaccines Aged Out No longer eligi ble based on patient's age to complete this topic RSV under 20 months Aged Out No longe r eligible based on patient's age to complete this topic Rotavirus Vaccines Aged Out No longer eligible based on patient's age to complete this topic Insurance [employer] ONE CARE < 65 VSP Care Teams Lap Winder Relationship Specialty Start Date End Date Provider, Not In System PCP - General Family Medicine 12/23/22 Michelle Reich OD [address] [place] [address] Optometry 12/23/22
== END 2024-10-24 16:17 | disposition home or self-care (01) ==
LOC: HO.HUSH 15:03
PROVIDERS: PCP Internal Medicine; Visit Provider Nurse Practitioner Family
DX: N40.0 Benign prostatic hyperplasia without lower urinary tract symptoms (principal); N52.9 Male erectile dysfunction, unspecified; R39.9 Unspecified symptoms and signs involving the genitourinary system
CPT/HCPCS: 99213

== ENCOUNTER 2024-11-23 15:35 | Outpatient (AMB) | payer OTHER, SELFPAY ==
--- OUTSIDE RECORDS SUMMARY | 2024-11-23 15:55 | XMS_ITS | Clinical Summary ---
Author Organization [employer] Address [address] [facility] 7[address] [place] [address] Care Team Providers Care Put In Beat Adjuster Name Role Phone Provider, Not In System [...] ONE CARE < 65 VSP Care Teams Put In Beat Adjuster Relationship Specialty Start Date End Date Provider, Not In System PCP - General Family Medicine 12/23/22 Michelle Reich OD [address] [place] [address] Optometry 12/23/22
--- OUTSIDE RECORDS SUMMARY | 2024-11-23 15:55 | XMS_ITS | Clinical Summary ---
Author Organization [facility] ity Address [address] [place] [address] Care Team Providers Care Circulation Analyst Name Role Phone Cathie Evi Kayla SANCHEZ Primary Care Provider Social History Tobacco Use [...] series) 01/07/1999 Cholesterol Screening (Lipid Panel) 03/15/2022 HIV Screening 03/15/2022 Hepatitis C Screening 03/15/2022 Social Influencers of Health Screening 03/15/2022 COVID-19 Vaccine (1 - 2023-2 5 season) 2023 Depression Screening 04/12/2024 Influenza Vaccine (#1) 2024 HIB Vaccines Aged [...] age to complete this topic Care Teams Circulation Analyst Relationship Specialty Start Date End Date Evi Brand DO [address] [place] [address] PCP - General Pediatrics 04/26/18
--- OUTSIDE RECORDS SUMMARY | 2024-11-23 15:55 | XMS_ITS | Clinical Summary ---
Author Organization [address] Address [address] [place] [phone] Phone Care Team Providers Care Real Estate Appraiser Name Role Phone Unavailable Primary Care Provider [...] patient's age to complete this topic Insurance [id number] MEDICAID MEDICARE MEDICARE MANAGED MISC [id number] MEDICAID MEDICARE MEDICARE MANAGED MISC [place] [id number] MEDICAID MEDICARE MEDICARE [place] [facility] [place] [id number]
--- OUTSIDE RECORDS SUMMARY | 2024-11-23 15:55 | XMS_ITS | Clinical Summary ---
Author Organization [facility] Address [address] [place] [address] Care Team Providers Care Pipe And Test Supervisor Name Role Phone Unavailable Primary Care Provider [...]
[2024-11-23 16:05] VITALS: BP 126/90; PULSE 81; TEMP 36.7; O2SAT 98; BMI 33.4
--- NOTE | 2024-11-23 16:05 | AM.OFFWIN_ITS ---
Intake Vital Signs 11/23/24 16:05 Height 5 ft 11.5 in Weight 243 lb BMI 33.4 BP 126/90 H Blood Pressure Location Lt brachial Position Sitting Pulse 81 Pulse Source Pulse Oximeter Temp 98.1 F Temp Source Oral Pulse Oximetry (%) 98 Oxygen Delivery Method Room Air Intake Visit Reasons: EP expose to mold? cough, sob, can't taste Intake Note: presents with chest congestion with cough, SOB, sinus congestion and loss of taste Patient Tobacco Use Status: Former Tobacco user Allergies bee pollen (BEE STINGS) Allergy (Severe, Verified 10/24/24 15:13) ANAPHYLAXIS mold Allergy (Intermediate, Verified 11/23/24 16:08) URI fentanyl Allergy (Mild, Verified 10/24/24 15:13) Agitated Do you need a note to return to daycare/school/sports/work: No HPI HPI Comments History of Present Illness Details 44 y/o Male patient who presents to the walk in clinic with c/o chest congestion with cough, SOB, sinus congestion and loss of taste. Pt was exposed to Mold 4 days ago down in his Basement and his symptoms have been getting worse since then. Denies Fevers, chills, nausea or vomiting. [facility] Medical History (Updated 11/23/24 @ 16:23 by Precious Moore NP) Cough Acute respiratory disease Numbness and tingling Post herpetic neuralgia Difficult or painful urination Urinary hesitancy Abdominal bloating Epigastric pain Dyslipidemia Thoracic ascending aortic aneurysm Preoperative examination Chronic idiopathic constipation Chronic bronchitis Impaired fasting glucose Asymptomatic HIV infection PTSD (post-traumatic stress disorder) ADHD (attention deficit hyperactivity disorder) Eosinophilic esophagitis Surgical History Hx of appendectomy Hx of knee surgery History of esophagogastroduodenoscopy (EGD) Family History Father No problems noted. Mother CAD (coronary artery disease) Mental health disorder Brother No problems noted. Sister No problems noted. Sister No problems noted. Son No problems noted. Daughter No problems noted. Paternal Grandfather Substance use disorder Paternal Uncle Substance use disorder Paternal Uncle Substance use disorder Social History Housing: Condominium Patient Tobacco Use Status: Former Tobacco user e-Cigarette/Vaping Use: Currently Using service: No Current occupational status: employed Cognitive needs: No Hearing needs: No Vision needs: Yes Review of Systems Const All systems reviewed & are unremarkable except as noted in HPI and below Physical Exam Vital Signs: Last Vital Signs Temp 98.1 F 11/23/24 16:05 Pulse 81 11/23/24 16:05 BP 126/90 H 11/23/24 16:05 Pulse Ox 98 11/23/24 16:05 Oxygen Delivery Method Room Air 11/23/24 16:05 BMI result Body Mass Index 33.4 Const General: no acute distress Nutritional Appearance: overweight Orientation/consciousness: patient oriented x3 HEENT Head: Yes normocephalic Ears: external ears normal and TM abnormal bulging bilateral, erythematous on the left and with fluid behind the TM bilateral General nose exam: Abnormal mucous membranes and turbinates present boggy Face and sinus: Yes sinuses nontender Mouth: moist mucous membranes Throat: Yes uvula midline Resp Effort & Inspection: normal respiratory effort Auscultation: clear to auscultation bilaterally Cardio Heart sounds: S1 normal heart sound present and S2 normal heart sound present Neuro General: patient oriented x3 Assessment & Plan Assessment & Plan (1) Acute respiratory disease: Code(s): J06.9 - Acute upper respiratory infection, unspecified Plan: Ordered SARs Ordered Decongestant Acetaminophen for pain relief OTC cough remedies. (2) Cough: Code(s): R05.9 - Cough, unspecified Qualifiers: Cough type: subacute Qualified Code(s): R05.2 - Subacute cough Plan: Ordered SARs Ordered Decongestant Acetaminophen for pain relief OTC cough remedies. Ordered chest Xray. Orders: Orders XR chest 2V Today R05.9 - Cough, unspecified SARS-CoV2/FLU/RSV Today J06.9 - Acute upper respiratory infection, unspecified Medications: New oxymetazoline 0.05% (Afrin (oxymetazoline)) 2 sprays intranasal Q12H PRN 22 mL 0RF nasal congestion 3 days J06.9 - Acute upper respiratory infection, unspecified benzonatate 200 mg (2 x 100 mg) PO BID 60 caps 0RF R05.2 - Subacute cough cetirizine (Zyrtec) 10 mg PO DAILY 20 tabs 0RF J06.9 - Acute upper respiratory infection, unspecified Coding Level of Care Code Est Pt Level 4 (87812) Diagnoses Acute respiratory disease J06.9 Subacute cough R05.2 Cough type: subacute Time Spent (min) 20
== END 2024-11-23 16:55 | disposition home or self-care (01) ==
PROVIDERS: PCP Internal Medicine; Visit Provider Nurse Practitioner Family
DX: J06.9 Acute upper respiratory infection, unspecified (principal); R05.2 Subacute cough

== ENCOUNTER 2024-11-23 15:35 | Outpatient (REF) | payer OTHER, SELFPAY ==
--- NOTE | ~2024-11-23 | XR_ITS ---
EXAMINATION: XR CHEST CLINICAL INFORMATION: R05.9 - Cough, unspecified COMPARISON: None available. TECHNIQUE: 2 views of the chest were obtained. FINDINGS: No significant abnormality is noted involving the heart, lungs, mediastinum, bony thorax or soft tissues. XR/XR chest 2V IMPRESSION: Unremarkable chest examination. Electronically signed by: Shade Wolfe MD 11/23/2024 04:49 PM EDT RP
[2024-11-24 11:49] LABS: Resp Syncy Virus RNA Qual PCR NEGATIVE (Negative); SARS COV2 PCR INHOUSE NEGATIVE (Negative)
== END 2024-11-23 15:36 | disposition home or self-care (01) ==
LOC: HO.HMGCX 15:35
PROVIDERS: PCP Internal Medicine; Visit Provider Nurse Practitioner Family
DX: J06.9 Acute upper respiratory infection, unspecified (principal); R05.2 Subacute cough; Z87.891 Personal history of nicotine dependence; Z79.899 Other long term (current) drug therapy
CPT/HCPCS: 71046; 87637; 99212

== ENCOUNTER 2024-11-23 16:22 | Outpatient (REF) | payer OTHER, SELFPAY | END 2024-11-23 16:23 | disposition home or self-care (01) | LOC: HO.LAB 16:22 | PROVIDERS: Visit Provider Nurse Practitioner Family | DX: Z13.89 Encounter for screening for other disorder (principal) ==

== ENCOUNTER → 2024-11-23 16:31 | Outpatient (BNV) | payer OTHER, SELFPAY | PROVIDERS: PCP Internal Medicine; Visit Provider Radiology Diagnostic Radiology | DX: R05.9 Cough, unspecified (principal) | CPT/HCPCS: 71046 ==

== ENCOUNTER 2024-12-25 12:14 | Outpatient (AMB) | payer OTHER, SELFPAY ==
[2024-12-25 13:23] VITALS: BP 126/90; PULSE 90; TEMP 36.9; O2SAT 98; BMI 33.4
--- NOTE | 2024-12-25 13:23 | MHC.OFFWIV ---
Intake Vital Signs 12/25/24 13:23 Height 5 ft 11.5 in Weight 243 lb BMI 33.4 BP 126/90 H Blood Pressure Location Lt brachial Position Sitting Pulse 90 Pulse Source Pulse Oximeter Temp 98.5 F Temp Source Oral Pulse Oximetry (%) 98 Oxygen Delivery Method Room Air Intake Visit Reasons: EP swollen right leg Intake Note: pt presents with right lower leg swelling, redness, itchy, tight feeling, warm to touch Patient Tobacco Use Status: Former Tobacco user Allergies bee pollen (BEE STINGS) Allergy (Severe, Verified 12/25/24 13:27) ANAPHYLAXIS mold Allergy (Intermediate, Verified 12/25/24 13:27) URI fentanyl Allergy (Mild, Verified 12/25/24 13:27) Agitated Do you need a note to return to daycare/school/sports/work: No HPI HPI Comments History of Present Illness Details 44 y/o Male patient who presents to the walk in clinic with c/o Right LE swelling and Redness for one week now. Denies any injury or trauma. He also does have Cough, wheezing, and SOB for 1 week. [facility] Medical History (Updated 12/25/24 @ 14:06 by Precious Moore NP) Wheezing Right leg swelling Cough Acute respiratory disease Numbness and tingling Post herpetic neuralgia Difficult or painful urination Urinary hesitancy Abdominal bloating Epigastric pain Dyslipidemia Thoracic ascending aortic aneurysm Preoperative examination Chronic idiopathic constipation Chronic bronchitis Impaired fasting glucose Asymptomatic HIV infection PTSD (post-traumatic stress disorder) ADHD (attention deficit hyperactivity disorder) Eosinophilic esophagitis Surgical History Hx of appendectomy Hx of knee surgery History of esophagogastroduodenoscopy (EGD) Family History Father No problems noted. Mother CAD (coronary artery disease) Mental health disorder Brother No problems noted. Sister No problems noted. Sister No problems noted. Son No problems noted. Daughter No problems noted. Paternal Grandfather Substance use disorder Paternal Uncle Substance use disorder Paternal Uncle Substance use disorder Social History Housing: Condominium Patient Tobacco Use Status: Former Tobacco user e-Cigarette/Vaping Use: Currently Using service: No Current occupational status: employed Cognitive needs: No Hearing needs: No Vision needs: Yes Review of Systems Const All systems reviewed & are unremarkable except as noted in HPI and below Physical Exam Vital Signs: Last Vital Signs Temp 98.5 F 12/25/24 13:23 Pulse 90 12/25/24 13:23 BP 126/90 H 12/25/24 13:23 Pulse Ox 98 12/25/24 13:23 Oxygen Delivery Method Room Air 12/25/24 13:23 BMI result Body Mass Index 33.4 Const General: no acute distress; No comfortable Nutritional Appearance: obese Orientation/consciousness: patient oriented x3 Resp Effort & Inspection: normal respiratory effort, audible wheezes and Actively coughing Auscultation: no crackles, no rales, rhonchi and wheezes Cardio Heart sounds: S1 normal heart sound present and S2 normal heart sound present Neuro General: patient oriented x3, gait normal and moves all extremities Extrem Right lower extremity: lower leg Details: erythema, tenderness, pitting edema Details: 2+ and warmth; no crepitus Assessment & Plan Assessment & Plan (1) Right leg swelling: Code(s): M79.89 - Other specified soft tissue disorders Plan: Ordered Doppler US to r/o DVT (NEGATIVE FOR DVT) Will treat for Cellulitis at this time with Keflex Elevate the LE (2) Wheezing: Code(s): R06.2 - Wheezing Plan: Ordered Chest Xray (UNREMARKABLE) Ordered Prednisone Ordered Cough medicine Orders: Orders XR chest 2V Today R06.2 - Wheezing US venous duplex LE RT Today - Other specified soft tissue disorders Medications: New cephalexin 500 mg PO BID 14 caps 0RF 7 days M. - Other specified soft tissue disorders benzonatate 200 mg (2 x 100 mg) PO BID 60 caps 0RF R05.9 - Cough, unspecified, R06.2 - Wheezing prednisone 50 mg PO DAILY 5 tabs 0RF 5 days R06.2 - Wheezing Coding Level of Care Code Est Pt Level 4 (76650) Diagnoses Right leg swelling Wheezing R06.2 Time Spent (min) 20
--- OUTSIDE RECORDS SUMMARY | 2024-12-25 16:48 | XMS_ITS | Clinical Summary ---
Author Organization [facility] Address [address] [place] [address] Care Team Providers Care Exercise Instruct Name Role Phone Unavailable Primary Care Provider [...]
--- OUTSIDE RECORDS SUMMARY | 2024-12-25 16:48 | XMS_ITS | Clinical Summary ---
Author Organization [facility] ity Address [address] [place] [address] Care Team Providers Care Slide Fasteners Inspector Name Role Phone Cathie Evi L DO [...] 03/15/2022 Social Influencers of Health Screening 03/15/2022 Depression Screening 04/12/2024 COVID-19 Vaccine (1 - 2023-2 5 season) 2024 Influenza Vaccine (#1) 2024 HIB Vaccines Aged [...] age to complete this topic Care Teams Slide Fasteners Inspector Relationship Specialty Start Date End Date Evi Brand DO [address] [place] [address] PCP - General Pediatrics 04/26/18
--- OUTSIDE RECORDS SUMMARY | 2024-12-25 16:48 | XMS_ITS | Clinical Summary ---
Author Organization [address] Address [address] [place] [phone] Phone Care Team Providers Care Supervisor Home Energy Consultant Name Role Phone Unavailable Primary Care Provider [...] screening 2020 Covid-19 vaccine series ( - season) 2024 Influenza vaccine 12/11/2024 RSV Immunization (1 - 1-dose 75+ series) 01/07/2055 Meningococcal B Vaccine Aged Out No l onger eligible based on patient's age to complete this topic Meningococcal Vaccine Aged Out No ziyad kierra eligible based on patient's age to complete this topic Pneumococcal Vaccine (2 - 49 years) Aged Out No longer eligible based on patient's age to complete this topic Insurance [id number] MEDICAID MEDICARE MEDICARE MANAGED MISC [id number] MEDICAID MEDICARE MEDICARE MANAGED MISC [id number] MEDICAID MEDICARE [place] [facility] [place]
--- OUTSIDE RECORDS SUMMARY | 2024-12-25 16:48 | XMS_ITS | Clinical Summary ---
Author Organization [facility] Address [address] [place] [address] Care Team Providers Care Tribal Delegate Name Role Phone Unknown, Pcp MD Primary Care Provider Unavailabl e Allergies Active Allergy Reactions Criticality Noted Date Comments Bee Anaphylaxis High 12/06/2022 Social History Tobacco Use Types Packs/Day Years Used Date Smoking Tobacco: Never Assessed Sex and Gender Information Value Date Recorded Sex Assigned at Not on file Legal Sex Male 3:42 PM EST Gender Identity Not on file Sexual Orientation Not on file Last Filed Vital Signs Vital Sign Reading Time Taken Comments Blood Pressure 162/94 12/06/2022 2:20 PM EDT Pulse 88 12/06/2022 2:20 PM EDT Temperature 37 C (98.6 F) 12/06/2022 2:20 PM EDT Respiratory Rate 16 12/06/2022 2:20 PM EDT Oxygen Saturation 98% 12/06/2022 2:20 PM EDT Inhaled Oxygen Concentration - - Weight 99.5 kg (219 lb 6.4 oz) 12/06/2022 2:20 P M EDT Height - - Body Mass Index - - Plan of Treatment Health Maintenance Due Date Last Done Comments HEPATITIS C SCREENING 01/07/1997 DTAP/TDAP/TD VACCINES (1 - Tdap) 01/07/2009 INFLUENZA VACCINE (#1) 2024 COVID-19 IMMUNIZATION (1 - 2 25 season) 2024 ZOSTER VACCINE (1 of 2) 01/07/2030 RSV IMMUNIZATION (1 - 1-dose 75+ series) 01/07/2055 IPV VACCINES Aged Out No longer eligi ble based on patient's age to complete this topic MENINGOCOCCAL B VACCINE Aged Out No l onger eligible based on patient's age to complete this topic PNEUMOCOCCAL VACCINE Aged Out No long er eligible based on patient's age to complete this topic Insurance [facility] (MEDICARE) [facility] Care Teams Tribal Delegate Relationship Specialty Start Date End Date Unknown, PcpMD Unknown Address Unknown [place] [address] PCP - General 12/06/22
--- OUTSIDE RECORDS SUMMARY | 2024-12-25 16:48 | XMS_ITS | Clinical Summary ---
Author Organization [employer] Address [address] [facility] [address] [place] [address] Care Team Providers Care Lead Security Officer Name Role Phone Provider, Not In System [...] C Screening 01/07/1998 COVID-19 Vaccine (3 - 2024-2 6 season) 2024 01/23/2021, 11/18/2020 Influenza Vaccine (#1) 2024 03/07/2019 [...] ONE CARE < 65 VSP Care Teams Lead Security Officer Relationship Specialty Start Date End Date Provider, Not In System PCP - General Family Medicine 12/23/22 Michelle Reich OD [address] [place] [address] Optometry 12/23/22
== END 2024-12-25 14:19 | disposition home or self-care (01) ==
PROVIDERS: PCP Internal Medicine; Visit Provider Nurse Practitioner Family
DX: M79.89 Other specified soft tissue disorders (principal); R06.2 Wheezing

== ENCOUNTER 2024-12-25 12:14 | Outpatient (REF) | payer OTHER, SELFPAY ==
--- NOTE | ~2024-12-25 | US_ITS ---
EXAMINATION: US TRIPLEX LOWER EXTREMITY, RIGHT CLINICAL INFORMATION: Right leg swelling times one week. COMPARISON: None available. TECHNIQUE: Color-flow triplex imaging with spectral analysis and compression Doppler were performed on the right lower extremity. FINDINGS: Respiratory variation, normal compression and augmented flow are noted throughout the right lower extremity. The visualized common femoral vein, superficial femoral vein, profunda femoral vein, popliteal vein and midcalf peroneal and posterior tibial venous segments show no evidence of deep venous thrombosis. There is no Phoenix's cyst. US/US venous duplex LE RT IMPRESSION: No evidence of deep venous thrombosis involving the right lower extremity. Electronically signed by: Praveen Thompson MD 12/25/2024 02:50 PM EDT
--- NOTE | ~2024-12-25 | XR_ITS ---
EXAMINATION: XR CHEST CLINICAL INFORMATION: R06.2 - Wheezing COMPARISON: November 23, 2024 TECHNIQUE: 2 views of the chest were obtained. FINDINGS: No hyperinflation. Prominence of the interstitial markings in the perihilar region. No consolidation pleural effusion or pneumothorax. Cardiomediastinal silhouette size is normal. Mild multilevel spondylosis. XR/XR chest 2V IMPRESSION: Acute small airway inflammatory processes should be considered in the correct clinical settings. Electronically signed by: Marquez Andrade MD 12/25/2024 02:31 PM EDT
== END 2024-12-25 12:15 | disposition home or self-care (01) ==
LOC: HO.HMGCX 12:14
PROVIDERS: PCP Internal Medicine; Visit Provider Nurse Practitioner Family
DX: M79.89 Other specified soft tissue disorders (principal); R06.2 Wheezing; Z87.891 Personal history of nicotine dependence
CPT/HCPCS: 71046; 93971; 99212

== ENCOUNTER → 2024-12-25 14:12 | Outpatient (BNV) | payer OTHER, SELFPAY | PROVIDERS: PCP Internal Medicine; Visit Provider Radiology Diagnostic Radiology | DX: R22.41 Localized swelling, mass and lump, right lower limb (principal); R06.2 Wheezing | CPT/HCPCS: 71046; 93971 ==

== ENCOUNTER 2024-12-25 14:22 | Outpatient (REF) | payer OTHER, SELFPAY | END 2024-12-25 14:23 | disposition home or self-care (01) | LOC: HO.HMGCX 14:22 | PROVIDERS: Visit Provider Nurse Practitioner Family | DX: Z13.89 Encounter for screening for other disorder (principal) ==